=== PATIENT | female | born 1945 | race Caucasian/White ===

== ENCOUNTER 2017-02-14 10:01 | Day surgery (SDC) | payer MEDICARE, OTHER ==
[2017-02-14] MEDS ORDERED: LACTATED RINGERS 1,000 ML IV ONE ×2 (10:49→12:40)
[2017-02-14] MEDS ORDERED: MIDAZOLAM 2 MG/2 ML VIAL IVP ONE (12:00)
[2017-02-14] MEDS ORDERED: fentaNYL 250 MCG/5 ML VIAL IVP ONE (12:00)
== END 2017-02-14 10:02 | disposition home or self-care (01) ==
PROC: 0DBN8ZX Excision of Sigmoid Colon, Via Natural or Artificial Opening Endoscopic, Diagnostic (ICD-10-PCS; principal; 2017-02-14 11:15)
DX: K62.89 Other specified diseases of anus and rectum (principal); D12.5 Benign neoplasm of sigmoid colon; K57.30 Diverticulosis of large intestine without perforation or abscess without bleeding; K64.8 Other hemorrhoids; I10 Essential (primary) hypertension; E03.9 Hypothyroidism, unspecified; M85.80 Other specified disorders of bone density and structure, unspecified site
CPT/HCPCS: 45380; J7120

== ENCOUNTER 2017-02-24 11:12 | Outpatient (CLI) | payer MEDICARE, OTHER ==
[2017-02-24] MEDS ORDERED: GADOBUTROL 7.5 MMOL/7.5 ML VIAL IVP ONE (14:05)
== END 2017-02-24 11:13 | disposition home or self-care (01) ==
DX: C50.211 Malignant neoplasm of upper-inner quadrant of right female breast (principal)
CPT/HCPCS: 36415; 82565; A9585; C8908

== ENCOUNTER 2017-03-11 08:57 | Day surgery (SDC) | payer MEDICARE, OTHER ==
[2017-03-11] MEDS ORDERED: ceFAZolin 2 GM/50 ML 50 ML IV ONE (09:10)
[2017-03-11] MEDS ORDERED: LACTATED RINGERS 1,000 ML IV ONE ×2 (11:34→14:59)
[2017-03-11] MEDS ORDERED: SCOPOLAMINE PATCH TOP ONE (12:44)
[2017-03-11] MEDS ORDERED: DEXAMETHASONE 4 MG/ML VIAL IVP ONE (14:14)
[2017-03-11] MEDS ORDERED: ONDANSETRON 4 MG/2 ML VIAL IVP ONE (14:14)
[2017-03-11] MEDS ORDERED: fentaNYL 100 MCG/2 ML VIAL IVP ONE (14:14)
[2017-03-11] MEDS ORDERED: PROPOFOL 200 MG/20 ML VIAL IVP ONE (14:14)
[2017-03-11] MEDS ORDERED: ePHEDrine 50 MG/ML AMP IVP ONE (14:14)
[2017-03-11] MEDS ORDERED: MIDAZOLAM 2 MG/2 ML VIAL IVP ONE (14:14)
[2017-03-11] MEDS ORDERED: LIDOCAINE-MPF 2% 5 ML VIAL IM ONE (14:14)
[2017-03-11] MEDS ORDERED: KETOROLAC 30 MG/ML VIAL IVP ONE (14:14)
[2017-03-11] MEDS ORDERED: ACETAMINOPHEN 1,000 MG/100 ML VIAL IV ONE (14:14)
[2017-03-11] MEDS ORDERED: BUPIVACAINE 0.5% PF 30 ML VIAL SUBQ ONE (14:59)
[2017-03-11] MEDS: HYDROmorphone 1 MG/ML SYRINGE ONE ×3 (16:44→16:57)
[2017-03-11] MEDS ORDERED: oxyCOD/ACETAMIN 5 MG/325 MG TABLET PO ONE (17:48)
== END 2017-03-11 08:58 | disposition home or self-care (01) ==
PROC: C71L1ZZ Planar Nuclear Medicine Imaging of Upper Chest Lymphatics using Technetium 99m (Tc-99m) (ICD-10-PCS; 2017-03-11)
PROC: 0HBT0ZX Excision of Right Breast, Open Approach, Diagnostic (ICD-10-PCS; principal; 2017-03-11 12:30)
PROC: 07B50ZX Excision of Right Axillary Lymphatic, Open Approach, Diagnostic (ICD-10-PCS; 2017-03-11 12:30)
DX: C50.911 Malignant neoplasm of unspecified site of right female breast (principal); Z90.49 Acquired absence of other specified parts of digestive tract; E03.9 Hypothyroidism, unspecified; M85.80 Other specified disorders of bone density and structure, unspecified site
CPT/HCPCS: 19281; 19301; 38500; 76098; 78195; 88307; 88360; A9270; A9541; J0131; J0690; J1170; J3490; J7120

== ENCOUNTER 2017-03-11 16:15 | Day surgery (SDC) | payer MEDICARE, OTHER ==
[~2017-03-11 16:15] MED LIST: BUFFERED LIDOCAINE 10 ML SYRINGE IU ONE; BUPIVACAINE 0.5%-EPI 1:200000 PF 30 ML VIAL SUBQ ONE
== END 2017-03-11 16:16 | disposition home or self-care (01) ==
DX: C50.911 Malignant neoplasm of unspecified site of right female breast (principal)

== ENCOUNTER 2017-05-03 12:33 | Outpatient (CLI) | payer MEDICARE, OTHER ==
--- NOTE | 2017-05-04 08:40 | Ultrasound Report ---
LEFT BREAST ULTRASOUND: 05/03/2017 CLINICAL INDICATION: Palpable abnormality inner left breast. TECHNIQUE: Real-time scanning was performed with circulation sales representative static images obtained. FINDINGS: Ultrasound of the palpable abnormality identified by the patient was performed. Compariso n is made to diagnostic mammogram of the same day, diagnostic mammogram of 12/31/2016, MRI of the jennifer asts of 02/24/2017. At the 10 o'clock position, 7 cm from the nipple, there is a hypoechoic smoothly marginated 12 x 11 x 3 mm nodule, which demonstrates posterior acoustic enhancement and no associated vascularity. The i maging findings are compatible with a fibroadenoma. Review of the MRI demonstrates no evidence of an avid enhancing lesion at this site, compatible with a fibroadenoma. No sonographically suspicious f indings are identified. IMPRESSION: Probable benign likely fibroadenoma correlating with the palpable abnormality. The options of 6-month followup and biopsy were discussed with the patient. At this time, she opts f or 6-month followup. BI-RADS category 3, probable benign findings. JOB #: [id number] EXT JOB #:[id number]
--- NOTE | 2017-05-04 08:40 | Mammography Report ---
DIGITAL DIAGNOSTIC LEFT MAMMOGRAM: 05/03/2017 CLINICAL INDICATION: Palpable abnormality inner left breast. TECHNIQUE: Left CC, MLO, true lateral, laterally exaggerated craniocaudal views. COMPARISON: Outside mammogram 01/13/2017, MRI 02/24/2017. FINDINGS: The left breast again demonstrates heterogeneously dense fibroglandular parenchyma. Coars e, typically benign calcifications are present. No suspicious masses, clustered microcalcifications, or regions of architectural distortion are identified. Please also refer to left breast ultrasound of the same day. IMPRESSION: PROBABLE BENIGN FINDINGS, WITH A LIKELY FIBROADENOMA ON ULTRASOUND. RECOMMENDATION: Six-month followup diagnostic mammogram and ultrasound. BI-RADS category 3, probable benign findings. STANDARD QUALIFYING STATEMENTS 1. This examination was reviewed with the aid of Computer-Aided Detection (CAD). 2. A negative or benign imaging report should not delay biopsy if clinically suspicious findings are present. Consider surgical consultation if warranted. More than 5% of cancers are not identified by i maging. 3. Dense breasts may obscure an underlying neoplasm. JOB #: [id number] EXT JOB #:[id number]
== END 2017-05-03 12:34 | disposition home or self-care (01) ==
LOC: DI 12:33
PROVIDERS: ATTEND Surgery
DX: N63 Unspecified lump in breast (principal)
CPT/HCPCS: 76642; G0206

== ENCOUNTER 2017-06-24 10:25 | Outpatient (CLI) | payer MEDICARE, OTHER ==
--- NOTE | 2017-06-24 12:16 | Ultrasound Report ---
COMPLETE ABDOMINAL ULTRASOUND: 06/24/2017 CLINICAL INDICATION: Pain. TECHNIQUE: Real-time scanning was performed with unit support representative static images obtained. FINDINGS: The liver measures 14.8 cm. Hepatic echotexture is normal. No intrahepatic biliary dilatati on or focal parenchymal lesion is present. The patient is status post cholecystectomy. The common sam e duct measures 9 mm. The visualized pancreas is normal. The right kidney measures 11.1 cm, and is un remarkable. The left kidney measures 10.5 cm, and demonstrates small parenchymal calcifications, like ly representing scarring from previous infection. The spleen measures 7.3 cm, and demonstrates normal echotexture. The abdominal aorta is normal in caliber. The inferior vena cava is unremarkable. No fr ee fluid is present. IMPRESSION: CHANGES OF CHOLECYSTECTOMY. NO EVIDENT ETIOLOGY FOR PATIENT'S ABDOMINAL PAIN. JOB #: [id number] EXT JOB #:[id number]
== END 2017-06-24 10:26 | disposition home or self-care (01) ==
LOC: DI 10:25
PROVIDERS: ATTEND Physician Assistant
DX: R10.9 Unspecified abdominal pain (principal)
CPT/HCPCS: 76700

== ENCOUNTER 2017-09-13 09:54 | Outpatient (CLI) | payer MEDICARE, OTHER ==
--- NOTE | 2017-09-13 10:46 | Mammography Report ---
DIGITAL BILATERAL DIAGNOSTIC MAMMOGRAM: 09/13/2017 COMPARISON STUDY: Mammogram 05/03/2017. INDICATION: History of right breast cancer. Prior left breast procedure. This is a short-term followup for a palpable left breast abnormality that was probably a fibroadenoma as seen on ultrasound of April 2017. There is no longer a palpable abnormality, however. TECHNIQUE: Bilateral CC and MLO breast views. FINDINGS: Breast density A3, heterogeneously dense. Bilateral scar markers are in place. There is postsurgical architectural distortion on the right. No mass, concerning cluster of microcalcifications, or architectural distortion is seen in other regards. IMPRESSION: BIRADS CATEGORY 3 - PROBABLY BENIGN. THE PATIENT SHOULD RETURN FOR STANDARD SIX-MONTH FOLLOWUP OF THE POSTOPERATIVE RIGHT BREAST. STANDARD QUALIFYING STATEMENTS 1. This examination was reviewed with the aid of Computer-Aided Detection (CAD). 2. A negative or benign imaging report should not delay biopsy if clinically suspicious findings are present. Consider surgical consultation if warranted. More than 5% of cancers are not identified by imaging. 3. Dense breasts may obscure an underlying neoplasm. JOB #: [id number] EXT JOB #: [id number] MTDD
== END 2017-09-13 09:55 | disposition home or self-care (01) ==
LOC: DI 09:54
PROVIDERS: ATTEND Nurse Practitioner Adult Health
DX: C50.811 Malignant neoplasm of overlapping sites of right female breast (principal)
CPT/HCPCS: 77066

== ENCOUNTER 2017-09-14 08:00 | Outpatient (CLI) | payer MEDICARE, OTHER ==
[2017-09-14 13:12] LABS: CREATININE 0.9 mg/dL (0.4-1.0)
== END 2017-09-14 08:01 | disposition home or self-care (01) ==
LOC: LAB.N 08:00
PROVIDERS: ATTEND Radiology Radiation Oncology
DX: C50.919 Malignant neoplasm of unspecified site of unspecified female breast (principal)
CPT/HCPCS: 36415; 82565

== ENCOUNTER 2017-12-15 09:33 | Outpatient (CLI) | payer MEDICARE, OTHER ==
--- NOTE | 2017-12-15 19:15 | XRAY Report ---
DATE OF SERVICE: 12/15/2017 THREE VIEW THORACIC SPINE: 12/15/2017 CLINICAL INDICATION: Back pain. AP, lateral, swimmer's views of the thoracic spine demonstrate mild degenerative disk disease. There is no evidence of compression fracture. No paraspinal hematoma is seen. IMPRESSION: Mild degenerative disk disease. No evidence of fracture. TD: 12/15/2017 20:13
--- NOTE | 2017-12-15 19:16 | XRAY Report ---
DATE OF SERVICE: 12/15/2017 THREE VIEW LUMBAR SPINE: 12/15/2017 CLINICAL INDICATION: Back pain. AP, lateral, coned-down views of the lumbar spine demonstrate moderate degenerative disk and facet disease. There is a remote appearing mild anterior wedge compression deformity of L1, with approximately 20% anterior height loss. Degenerative dextroscoliosis is noted. The bowel gas pattern is normal. IMPRESSION: Moderate degenerative changes, with degenerative dextroscoliosis. Chronic appearing mild anterior wedge compression deformity of L1. TD: 12/15/2017 20:15
== END 2017-12-15 09:34 | disposition home or self-care (01) ==
LOC: DI 09:33
PROVIDERS: ATTEND Physician Assistant Medical
DX: M51.36 Other intervertebral disc degeneration, lumbar region (principal); M47.896 Other spondylosis, lumbar region; M48.56XD Collapsed vertebra, not elsewhere classified, lumbar region, subsequent encounter for fracture with routine healing; M41.56 Other secondary scoliosis, lumbar region; M51.34 Other intervertebral disc degeneration, thoracic region
CPT/HCPCS: 72072; 72100

== ENCOUNTER 2017-12-20 10:20 | Outpatient (CLI) | payer MEDICARE, OTHER ==
[2017-12-20 13:05] LABS: BILIRUBIN,URINE NEGATIVE (NEGATIVE); GLUCOSE, URINE (UA) NEGATIVE (NEGATIVE); KETONES,URINE (UA) NEGATIVE (NEGATIVE); LEUKOCYTE ESTERASE, URINE LARGE (NEGATIVE); NITRITE,URINE NEGATIVE (NEGATIVE); OCCULT BLOOD,URINE MODERATE (NEGATIVE); PH,URINE 6.5 PH (5.0-7.5); PROTEIN,URINE NEGATIVE (NEGATIVE); UROBILINOGEN,URINE 0.2 (NORMAL) E.U./dL (NORMAL)
[2017-12-20 13:09] LABS: CLARITY,URINE HAZY (CLEAR)
[2017-12-20 13:26] LABS: BACTERIA,URINE Rare /HPF (None Seen); RBC,URINE 0-5 /HPF (0-5); SQUAMOUS EPITHELIAL CELL,UR RARE Squamous (<= Few); WBC CLUMPS,URINE PRESENT
== END 2017-12-20 10:21 | disposition home or self-care (01) ==
LOC: LAB.R 10:20
PROVIDERS: ATTEND Nurse Practitioner Gerontology
DX: N39.0 Urinary tract infection, site not specified (principal)
CPT/HCPCS: 81001; 81003; 87077; 87086

== ENCOUNTER 2017-12-26 08:00 | Outpatient (CLI) | payer MEDICARE, OTHER ==
[2017-12-26 22:31] LABS: BILIRUBIN,URINE NEGATIVE (NEGATIVE); GLUCOSE, URINE (UA) NEGATIVE (NEGATIVE); KETONES,URINE (UA) NEGATIVE (NEGATIVE); LEUKOCYTE ESTERASE, URINE NEGATIVE (NEGATIVE); NITRITE,URINE NEGATIVE (NEGATIVE); OCCULT BLOOD,URINE NEGATIVE (NEGATIVE); PROTEIN,URINE NEGATIVE (NEGATIVE); UROBILINOGEN,URINE 0.2 (NORMAL) E.U./dL (NORMAL)
[2017-12-26 22:42] LABS: CLARITY,URINE CLEAR (CLEAR)
== END 2017-12-26 08:01 | disposition home or self-care (01) ==
LOC: LAB.R 08:00
PROVIDERS: ATTEND Nurse Practitioner Gerontology
DX: N39.0 Urinary tract infection, site not specified (principal)
CPT/HCPCS: 81001; 81003; 87086

== ENCOUNTER 2018-03-07 08:49 | Outpatient (CLI) | payer MEDICARE, OTHER ==
--- NOTE | 2018-03-07 12:43 | Mammography Report ---
DIGITAL DIAGNOSTIC RIGHT MAMMOGRAM: 03/07/2018 CLINICAL INDICATION: History of right breast cancer status post lumpectomy and radiation therapy. COMPARISON: 09/13/2017, 03/11/2017, 12/31/2016, 02/15/2014, 09/08/2012, 2010, 03/24/2010. TECHNIQUE: Right CC, MLO, true lateral, spot magnification views. FINDINGS: The right breast again demonstrates heterogeneously dense fibroglandular parenchyma. Coarse and punctate, typically benign calcifications are present. Postoperative and posttreatment changes in the right upper central breast are stable. No suspicious masses, clustered microcalcifications, or regions of architectural distortion are identified. IMPRESSION: PROBABLE BENIGN FINDINGS. RECOMMENDATION: Diagnostic bilateral mammogram in 6 months, to assure stability. BIRADS CATEGORY 3 - PROBABLE BENIGN FINDINGS. STANDARD QUALIFYING STATEMENTS 1. This examination was reviewed with the aid of Computer-Aided Detection (CAD) . 2. A negative or benign imaging report should not delay biopsy if clinically suspicious findings are present. Consider surgical consultation if warranted. More than 5 % of cancers are not identified by imaging. 3. Dense breasts may obscure an underlying neoplasm. TD: 03/07/2018 09:55 GURINDER
== END 2018-03-07 08:50 | disposition home or self-care (01) ==
LOC: DI 08:49
PROVIDERS: ATTEND Internal Medicine
DX: C50.811 Malignant neoplasm of overlapping sites of right female breast (principal); R10.2 Pelvic and perineal pain
CPT/HCPCS: 36415; 82565

== ENCOUNTER 2018-03-07 09:47 | Outpatient (CLI) | payer MEDICARE, OTHER ==
[2018-03-07 10:31] LABS: CREATININE 0.8 mg/dL (0.4-1.0)
== END 2018-03-07 09:48 | disposition home or self-care (01) ==
LOC: LAB 09:47
PROVIDERS: ATTEND Obstetrics & Gynecology
DX: R10.2 Pelvic and perineal pain (principal)
CPT/HCPCS: 36415; 82565

== ENCOUNTER 2018-03-10 08:09 | Outpatient (CLI) | payer MEDICARE, OTHER ==
[2018-03-10] MEDS ORDERED: IOPAMIDOL-300 50 ML VIAL ONE (08:30)
[2018-03-10] MEDS ORDERED: IOPAMIDOL-300 100 ML VIAL ONE (09:04)
[2018-03-10] MEDS ORDERED: IOPAMIDOL-300 100 ML VIAL IVP ONE (10:06)
[2018-03-10] MEDS ORDERED: IOPAMIDOL-300 50 ML VIAL PO ONE (10:06)
--- NOTE | 2018-03-10 19:30 | CT Report ---
CT ABDOMEN AND PELVIS WITH AND WITHOUT CONTRAST: 03/10/2018 INDICATION: Swelling pain. TECHNIQUE: Axial CT images of the abdomen and pelvis were obtained prior to and following 100 mL Isovue, 300 intravenously. Oral contrast was also administered. Limited evaluation of the lung bases demonstrates minimal atelectasis. ABDOMEN: The liver demonstrates cysts in the left lobe. No solid hepatic lesion or intrahepatic biliary dilatation is present. The patient is status post cholecystectomy. The kidneys demonstrate cysts. The spleen, pancreas and adrenal glands are unremarkable. No bowel dilatation, free gas, or free fluid is present. No abdominal adenopathy is seen. PELVIS: The pelvic organs appear unremarkable. No pelvic adenopathy or free fluid is present. Osseous structures demonstrate degenerative changes. IMPRESSION: INCIDENTAL HEPATIC AND RENAL CYSTS. NO EVIDENCE OF MASS OR ADENOPATHY. NO ASCITES. TD: 03/10/2018 19:29
== END 2018-03-10 08:10 | disposition home or self-care (01) ==
LOC: DI 08:09
PROVIDERS: ATTEND Obstetrics & Gynecology
DX: R10.2 Pelvic and perineal pain (principal); R19.07 Generalized intra-abdominal and pelvic swelling, mass and lump
CPT/HCPCS: 74178; Q9967

== ENCOUNTER 2018-04-05 13:25 | Emergency (ER) | payer MEDICARE, OTHER ==
[2018-04-05 13:32] VITALS: BP 152/83
--- NOTE | 2018-04-05 13:47 | ED Physician Documentation ---
History of Present Illness - Stated complaint Stated Complaint: FEMALE - Chief complaint Chief Complaint: General - History obtained from History obtained from: Patient, Family - History of Present Illness Timing: Other (She has a few month history of known uterine prolapse, has an appointment for surgery with Dr. Marie on May 10. Started to have vaginal bleeding today of a moderate amount which has lessened. There is pain but not more than there has been. She is consistently reducing it herself.) Review of Systems Constitutional: denies: Fever, Chills GI: denies: Abdominal Pain, Nausea, Vomiting : reports: Reviewed and negative Skin: reports: Reviewed and negative PD PAST MEDICAL HISTORY - Past Medical History Cardiovascular: None Respiratory: None Endocrine/Autoimmune: HyPOthyroidism GI: Colon polyps, Cholelithiasis : Incontinence HEENT: Chronic vision loss Psych: None Musculoskeletal: Osteoarthritis, Osteopenia, Chronic back pain Derm: None - Past Surgical History General: Cholecystectomy, Splenectomy, Other Ortho: Arthroscopic surgery /MANAGER E COMMERCE: Other HEENT: Tonsil/Adenoidectomy - Present Medications Home Medications: Ambulatory Orders Medication Instructions Recorded Confirmed Levothyroxine [Synthroid] 75 mcg PO QDAC 02/11/17 03/17/18 Rizatriptan Benzoate [Maxalt] 10 mg PO PRN PRN 02/11/17 03/17/18 Ascorbic Acid [Vitamin C] 1,000 mg PO DAILY 06/08/17 03/17/18 Calcium Carbonate/Vitamin D3 600 mg PO BID 06/08/17 03/17/18 [Calcium 600-Vit D3 400 Tablet] Glucosamine/Chondro Lloyd A 1 tab PO BID 07/06/17 03/17/18 [Glucosamine-Chondroitin Tab] [place]-3/Dha/Epa/Fish Oil [Fish Oil 1 cap PO DAILY 07/06/17 03/17/18 1,000 mg Softgel] Vitamin E 400 unit PO DAILY 07/06/17 03/17/18 Cyanocobalamin (Vitamin B-12) 100 mcg PO DAILY 10/05/17 03/17/18 [Vitamin B-12 (100mcg tab)] Turmeric/Turmeric Root Extract 1,000 mg PO DAILY 10/05/17 03/17/18 [Turmeric 500 mg Capsule] Vitamin B Complex [Balanced B-50] 1 tab PO DAILY 10/05/17 03/17/18 Tamoxifen 20 mg PO DAILY 03/17/18 03/17/18 - Allergies Allergies/Adverse Reactions: Allergies Allergy/AdvReac Type Severity Reaction Status Date / Time No Known Drug Allergies Allergy Verified 04/05/18 13:33 PD ED PE NORMAL - Vitals Vital signs reviewed: Yes - General General: Alert and oriented X 3, No acute distress - Abdomen Abdomen: Normal bowel sounds, Soft, Non tender - Female Female : Electron Microprobe Operator present (Pratima T tech), Other (Prolapse is reduced wihtout bleeding.) - Neuro Neuro: Alert and oriented X 3, Normal speech - Psych Psych: Normal mood, Normal affect Results - Vitals Vitals: Vital Signs - 24 hr 04/05/18 13:29 Temperature 36.5 C Heart Rate 69 Respiratory 16 Rate Blood Pressure 152/83 H O2 Saturation 98 Oxygen O2 Source Room air PD MEDICAL DECISION MAKING - ED course ED course: 73-year-old woman with Bleeding, resolved rectal prolapse. I spoke with her surgeon, Dr. Marie who recommended that he see her tomorrow for reevaluation and possible expediting of the surgery. Departure - Departure Disposition: 01 Home, Self Care Clinical Impression: Uterine prolapse Condition: Good Record reviewed to determine appropriate education?: Yes Comments: Dr. Marie would like to see you tomorrow, call the office today in [place] first thing in the morning at [phone]. Return if worse. Your blood pressure was elevated today on check into the emergency department. This does not mean that you have hypertension, it is a common phenomenon to come to the emergency department and have elevated blood pressure. I recommend that you see your primary care physician within the week to have it rechecked when you are feeling better.
== END 2018-04-05 14:13 | disposition home or self-care (01) ==
LOC: ED 13:25
DX: N81.4 Uterovaginal prolapse, unspecified (principal); R03.0 Elevated blood-pressure reading, without diagnosis of hypertension; E03.9 Hypothyroidism, unspecified; Z86.010 Personal history of colon polyps; M19.90 Unspecified osteoarthritis, unspecified site
CPT/HCPCS: 99282; 99283

== ENCOUNTER 2018-04-07 09:11 | Outpatient (CLI) | payer MEDICARE, OTHER ==
[2018-04-07 13:03] LABS: BASOPHILS % (AUTO) 0.6 %; EOSINOPHILS # (AUTO) 0.1 10^3/uL (0.0-0.7); EOSINOPHILS % (AUTO) 3.5 %; LYMPHOCYTES # (AUTO) 1.6 10^3/uL (1.5-3.5); MEAN CORPUSCULAR HEMOGLOBIN 31.1 pg (27.0-31.0); MEAN CORPUSCULAR HGB CONC 33.5 g/dL (32.0-36.0); MEAN CORPUSCULAR VOLUME 92.9 fL (81.0-99.0); MEAN PLATELET VOLUME 9.4 fL (7.9-10.8); MONOCYTES # (AUTO) 0.4 10^3/uL (0.0-1.0); MONOCYTES % (AUTO) 10.2 %; NEUTROPHILS # (AUTO) 1.9 10^3/uL (1.5-6.6); NEUTROPHILS % (AUTO) 46.7 %; PLT - PLATELET COUNT 196 10^3/uL (130-450); RED BLOOD COUNT 4.84 10^6/uL (4.20-5.40); WHITE BLOOD COUNT 4.2 x10^3/uL (4.8-10.8)
== END 2018-04-07 09:12 | disposition home or self-care (01) ==
LOC: LAB.N 09:11
PROVIDERS: ATTEND Obstetrics & Gynecology
DX: Z13.0 Encounter for screening for diseases of the blood and blood-forming organs and certain disorders involving the immune mechanism (principal); R19.07 Generalized intra-abdominal and pelvic swelling, mass and lump
CPT/HCPCS: 36415; 85025

== ENCOUNTER 2018-04-18 13:42 | Outpatient (CLI) | payer MEDICARE, OTHER ==
[2018-04-18 14:11] LABS: BASOPHILS % (AUTO) 0.7 %; EOSINOPHILS # (AUTO) 0.1 10^3/uL (0.0-0.7); EOSINOPHILS % (AUTO) 2.7 %; HGB - HEMOGLOBIN 14.3 g/dL (12.0-16.0); LYMPHOCYTES # (AUTO) 1.6 10^3/uL (1.5-3.5); LYMPHOCYTES % (AUTO) 31.9 %; MEAN CORPUSCULAR HEMOGLOBIN 31.2 pg (27.0-31.0); MEAN CORPUSCULAR HGB CONC 33.9 g/dL (32.0-36.0); MEAN CORPUSCULAR VOLUME 92.1 fL (81.0-99.0); MEAN PLATELET VOLUME 8.4 fL (7.9-10.8); MONOCYTES # (AUTO) 0.4 10^3/uL (0.0-1.0); MONOCYTES % (AUTO) 7.4 %; NEUTROPHILS # (AUTO) 2.9 10^3/uL (1.5-6.6); NEUTROPHILS % (AUTO) 57.3 %; PLT - PLATELET COUNT 212 10^3/uL (130-450); RED BLOOD COUNT 4.58 10^6/uL (4.20-5.40); RED CELL DISTRIBUTION WIDTH 13.3 % (12.0-15.0); WHITE BLOOD COUNT 5.1 x10^3/uL (4.8-10.8)
[2018-04-18 14:22] LABS: ALBUMIN 4.1 g/dL (3.2-5.5); ALBUMIN/GLOBULIN RATIO 1.5 (1.0-2.2); BILIRUBIN,TOTAL 0.5 mg/dL (0.2-1.0); CALCIUM 8.7 mg/dL (8.5-10.3); CREATININE 0.8 mg/dL (0.4-1.0); TOTAL PROTEIN 6.8 g/dL (6.7-8.2)
== END 2018-04-18 13:43 | disposition home or self-care (01) ==
LOC: LAB 13:42
PROVIDERS: ATTEND Obstetrics & Gynecology
DX: Z01.818 Encounter for other preprocedural examination (principal); N81.6 Rectocele; N81.3 Complete uterovaginal prolapse
CPT/HCPCS: 36415; 80053; 85025; 86850; 86900; 86901; 93005

== ENCOUNTER 2018-04-19 08:13 | Day surgery (SDC) | payer MEDICARE, OTHER ==
--- NOTE | 2018-04-18 14:59 | PREOP HISTORY & PHYSICAL ---
DATE OF SERVICE: 04/19/2018 Physician: Davon Marie MD PREOPERATIVE HISTORY/PHYSICAL OF 04/18/2018 FOR ANTICIPATED DATE OF 04/19/2018 IDENTIFICATION: Patient is a 73-year-old, G1, P1 female who is menopausal. CHIEF COMPLAINT: Uterine prolapse. HISTORY OF PRESENT ILLNESS: Patient states that she has been doing reasonably well up until a little over 2 years ago, at which time she did have complained of pressure feeling as though the uterus is falling out. She has been tried on pessary without success. She has also had pelvic floor PT. She states over the last 3 weeks she was seen in the ED, at which time, her uterus was prolapsed completely and was not being reduced. She denies any difficulty with defecation. She denies any difficulty with urination, either. She denies any stress incontinence. She does state there is some mild difficulty with urinating. PAST MEDICAL HISTORY: Positive for right breast cancer roughly 1 year ago. PAST SURGICAL HISTORY 1. Splenectomy at 6 years of age. 2. Laparoscopic cholecystectomy. 3. Right knee surgery. 4. She has also had a lumpectomy done in February 2017 for breast cancer. ALLERGIES: NONE KNOWN. CURRENT MEDICATIONS 1. Tamoxifen 2. Levothyroxine 70 mcg daily. 3. Maxalt 10 mg daily. HABITS: Patient denies use of alcohol, tobacco, or street addictive drugs. 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 REVIEW OF SYSTEMS: Noncontributory. PHYSICAL EXAMINATION GENERAL: Patient is a well-developed, well-nourished white female. She is in no acute distress at this time. HEENT: Pupils equal, round. Extraocular muscles are intact. Mouth is clear. NECK: Thyroid is not palpably enlarged. HEART: Regular rate and rhythm without murmurs. LUNGS: Lung lora are clear without rales or wheezes. CARDIOVASCULAR: Heart is regular rate and rhythm without murmurs. BACK: No spinal or CVA tenderness noted. ABDOMEN: Exam shows a left upper abdominal paramedian incision. She also has laparoscopic scars from a cholecystectomy. The remainder of abdomen soft without evidence of organomegaly. PELVIC: Examination previously showed evidence of a prolapsed uterus. There is evidence of a cystocele grade 4, as well as a rectocele. The uterus comes all the way to the introitus. IMPRESSION 1. Uterine prolapse. 2. Cystocele which is asymptomatic. 3. Rectocele which is asymptomatic. PLAN: Patient is scheduled for a total laparoscopically-assisted vaginal hysterectomy with bilateral salpingooophorectomy. She is also having anterior posterior repair, as well as a sacrospinous ligament suspension. Risks and benefits have been explained to the patient including those, but not limited to bleeding, infection, injury to the pelvic organs. She is aware of the potential for DVT with PE as well as postop adhesions which could cause pain, bowel obstruction. MEDICATIONS She has been given prescriptions for: 1. Oxycodone 10 mg #20. 2. Motrin 800 mg #30. 3. Colace 100 mg #30. TD: 04/18/2018 13:19 GURINDER
[2018-04-19] MEDS ORDERED: LACTATED RINGERS 1,000 ML IV ONE ×4 (08:28→13:29)
[2018-04-19] MEDS ORDERED: ceFAZolin 2 GM/50 ML 2 GM/50 ML BAG IV ONE (08:31)
[2018-04-19 08:52] VITALS: BP 138/76
[2018-04-19] MEDS ORDERED: BUPIVACAINE 0.25%-EPI 1:200000 PF 30 ML VIAL ONE ×2 (09:24→11:05)
[2018-04-19] MEDS ORDERED: BUPIVACAINE 0.5% PF 30 ML VIAL ONE (09:25)
[2018-04-19] MEDS ORDERED: BUPIVACAINE 0.25%-EPI 1:200000 PF 10 ML VIAL SUBQ ONE ×2 (09:57)
[2018-04-19] MEDS ORDERED: ePHEDrine 50 MG/ML AMP IVP ONE (10:30)
[2018-04-19] MEDS ORDERED: KETOROLAC 30 MG/ML VIAL IVP ONE (10:30)
[2018-04-19] MEDS ORDERED: LIDOCAINE-MPF 2% 5 ML VIAL IM ONE (10:30)
[2018-04-19] MEDS ORDERED: ONDANSETRON 4 MG/2 ML VIAL IVP ONE (10:30)
[2018-04-19] MEDS ORDERED: PROPOFOL 200 MG/20 ML VIAL IVP ONE (10:30)
[2018-04-19] MEDS ORDERED: GLYCOPYRROLATE 1 MG/5 ML VIAL IVP ONE (10:30)
[2018-04-19] MEDS ORDERED: ACETAMINOPHEN 1,000 MG/100 ML 100 ML IV ONE (10:30)
[2018-04-19] MEDS ORDERED: ROCURONIUM 50 MG/5 ML VIAL IVP ONE (10:30)
[2018-04-19] MEDS ORDERED: DEXAMETHASONE 4 MG/ML VIAL IVP ONE (10:30)
[2018-04-19] MEDS ORDERED: ESTROGENS, CONJUGATED CREAM 30 GM TUBE ONE (10:42)
[2018-04-19] MEDS ORDERED: ESTROGENS, CONJUGATED CREAM 30 GM TUBE VG ONE (11:04)
[2018-04-19] MEDS ORDERED: METHYLENE BLUE 0.5% 50 MG/10 ML AMPULE IVP ONE (12:20)
[2018-04-19] MEDS ORDERED: METHYLENE BLUE 0.5% 50 MG/10 ML AMPULE ONE (12:28)
[2018-04-19] MEDS ORDERED: ERTAPENEM 1 GM in SODIUM CHLORIDE 0.9% MINIBAG 100 ML IV ONE (12:52)
[2018-04-19] MEDS: HYDROmorphone 1 MG/ML CARPUJECT ONE ×4 (13:42→14:13)
[2018-04-19] MEDS: LACTATED RINGERS 1,000 ML IV SCH ×2 (14:30→20:26)
[2018-04-19] MEDS ORDERED: ONDANSETRON 4 MG/2 ML VIAL IVP PRN (16:03)
[2018-04-19] MEDS: oxyCOD/ACETAMIN 5 MG/325 MG TABLET PO PRN ×2 (17:48→21:52)
--- NOTE | 2018-04-19 20:09 | OPERATIVE REPORT ---
DATE OF SERVICE: 04/19/2018 Physician: Davon Marie MD PREOPERATIVE DIAGNOSES 1. Uterine prolapse. 2. Cystocele. 3. Rectocele. POSTOPERATIVE DIAGNOSES 1. Uterine prolapse. 2. Cystocele. 3. Rectocele. PROCEDURE PERFORMED 1. Laparoscopically assisted vaginal hysterectomy with bilateral salpingo- oophorectomy. 2. Anterior and posterior repair with sacrospinous ligament suspension. 3. Cystoscopy. 4. Colonoscopy. SURGEON: Davon Marie MD COOK CASHIER FOOD PREP: Nany Gauthier DO ANESTHESIA: Bryan Gan CRNA. General via LMA. FINDINGS: Large cystocele and rectocele. Uterus prolapsed all the way to the introitus. There was a normal cystoscopy as well as colonoscopy. COMPLICATIONS: Possible suture left through the rectum, which on colonoscopy was not proven. ESTIMATED BLOOD LOSS: 50 mL. SPECIMENS TO PATHOLOGY: Uterus, tubes and ovaries. DESCRIPTION OF OPERATION: Following adequate endotracheal anesthesia, the patient was placed in a dorsal lithotomy position in [facility]. At this point, she was prepped and draped in the usual fashion. A timeout was then performed, which the patient was identified as well as concerns. A speculum was placed in the vagina, cervix visualized, grasped with a single-tooth tenaculum. Uterus was sounded to 10 cm and then progressively dilated up to a size 7 dilator. A HUMI catheter was then placed and then insufflated. The canteen operator's gloves were changed. A stab wound was made in the subumbilical region following local anesthesia with 0.25% Marcaine with epinephrine. A trocar and sheath were placed under direct visualization. There was evidence of omental adhesions to the anterior abdominal wall. Bilateral trocars were placed both in the left and right lower quadrants following local anesthesia with 0.25 % Marcaine with epinephrine and a #11 blade to skin incision. These were both under direct visualization. The omental adhesions were noted to extend below the umbilicus utilizing the LigaSure. These were cauterized and divided. Good hemostasis was observed. The patient was placed in Trendelenburg. The bowel was allowed to fall out of the pelvis and the pelvis was inspected and noted to be normal. There was some adhesion on the left hand side of the sigmoid to the left pelvic sidewall. These were taken down with the LigaSure. The right fallopian tube and ovary were grasped and the infundibulopelvic ligament was cauterized doubly and then divided using the LigaSure. Then, in a stepwise fashion, the ovarian attachments to the broad ligament were cauterized and transected. This was carried all the way to the cornu. At this point, the round ligament on the right side was cauterized and then transected. The broad ligament was cauterized, transected, and then the anterior leaf of the broad ligament was opened. This was then cauterized, transected, carried across the lower portion of the uterus to develop a bladder flap. The uterine vessels on the right hand side were identified, cauterized, and transected. The ureter was noted to be out of the area of operating. The left tube and ovary, there were some adhesions which were taken down laparoscopically. The infundibulopelvic ligaments were then ligated, cauterized, and then transected. Then, the ovarian attachments were likewise cauterized and transected. This was carried down to the cornu and then the round ligament was cauterized, transected, as well as the broad ligament. The broad ligament was then opened and this was carried all the way to the bladder flap area. The uterine vessels on the left hand side were identified cauterized and transected with the LigaSure. At this point, with all the attachments above the belly being identified and divided, the attention was turned below. The cervix was grasped with Vora clamps, anterior and posterior, and the cervix was circumscribed with electrocautery. The anterior portion of the bladder was dissected off the lower cervix until the peritoneal cavity was entered. The posterior cul-de-sac was entered using Silva scissors and then the uterosacral ligaments were clamped with Griffin clamps, divided with Silva scissors and ligated with Griffin stitches with 0 Vicryl. The transverse cervical ligaments were then likewise clamped, divided, and ligated with 0 Vicryl. The uterus was then extirpated. The pedicles were inspected for bleeding, so none was noted. At this point, the long-billed speculum was left in the vagina and then the corners of the apex of the vagina were grasped with Allises and roughly 2 cm from the ureteral meatus, the anterior vaginal mucosa was grasped with an Allis. Then, Metzenbaum scissors were used to tunnel underneath the vaginal mucosa and then the vaginal mucosa was divided all the way up to the Allis clamp. The edges were grasped with Allis-Adairs. The bladder was then pushed free from the vaginal mucosa. The bladder was then plicated with 0 Vicryl sutures to reduce the cystocele. This was done completely. The anterior vaginal mucosa was trimmed and then this was closed utilizing 2-0 Vicryl. The uterosacral ligaments were then injected with 0.25% Marcaine and care was taken to aspirate to assure that none of the Marcaine was injected intravascularly. At this point, a pursestring of 4-0 Monocryl was placed to close the abdominal peritoneum. Attention was then changed to the posterior vaginal mucosa. A triangular segment of the vaginal mucosa was removed and then utilizing Metzenbaum sutures, the posterior vaginal mucosa was tunneled under and then divided. The edges of this were grasped with Smyth's. The rectum was pushed free from the vaginal mucosa. Then, utilizing the index finger, tunneling was accomplished between the rectum and the apex of the vagina all the way to the uterosacral ligament on the right hand side. At this point, following identification of the ligament, a Capio suture device was utilized to place a suture through the sacrospinous ligament. This was placed with 0 braided polyester. Two sutures were placed. At this point, these were then brought through the opening of the apex of the vagina. These sutures were then placed through the transverse cervical ligaments on both sides and then tied to these ligaments, the left hand side, the knots did not come down to the transverse cervical ligament, so this was removed and then replaced. At this point, the knots were placed in the suture and then the gabi system was used to pull the apex of the vagina deep into the pelvis. This had good accomplishment. The sutures were then trimmed and then the apex of the vagina was closed utilizing 2 -0 Vicryl. The posterior rectovaginal fascia was plicated utilizing 0 Vicryl and then the excess vaginal mucosa was trimmed and closed utilizing [id number] of 0 Vicryl. A digital rectal exam was performed at this time, at which time it was felt that there was a suture that was penetrating through the rectum. This was visualized through the speculum, so general surgery was summoned, at which time a colonoscopy was performed and no suture was seen. No puncture sites were seen in the vaginal mucosa after very careful inspection, so at this time is proceeding on with the procedure. Laparoscopic was performed, at which time the pelvis appeared to be dry without evidence of any bleeding. The CO2 was allowed to escape and these sutures were then closed utilizing 4-0 Monocryl with Dermabond sutures. The cystoscopy was performed and then there was evidence of good urine flow through both ureters. Vaginal packing was placed and the patient was then taken to the recovery room in stable condition. Sponge and needle counts were correct. TD: 04/19/2018 14:20 GURINDER
[2018-04-19] MEDS: AMOX/CLAV 875 MG/125 MG TABLET PO SCH (20:26)
[2018-04-20] MEDS: oxyCOD/ACETAMIN 5 MG/325 MG TABLET PO PRN ×2 (02:04→06:05)
[2018-04-20] MEDS: LACTATED RINGERS 1,000 ML IV SCH (06:05)
[2018-04-20] MEDS: AMOX/CLAV 875 MG/125 MG TABLET PO SCH (09:03)
== END 2018-04-20 09:54 | disposition home or self-care (01) ==
LOC: SDS 08:13 → OBS 14:00 → SDS 04-20 09:54
PROVIDERS: ATTEND Obstetrics & Gynecology
PROC: 0UTC4ZZ Resection of Cervix, Percutaneous Endoscopic Approach (ICD-10-PCS; 2018-04-19)
PROC: 0UT9FZZ Resection of Uterus, Via Natural or Artificial Opening With Percutaneous Endoscopic Assistance (ICD-10-PCS; principal; 2018-04-19 09:15)
PROC: 0UT2FZZ Resection of Bilateral Ovaries, Via Natural or Artificial Opening With Percutaneous Endoscopic Assistance (ICD-10-PCS; 2018-04-19 09:15)
PROC: 0UT7FZZ Resection of Bilateral Fallopian Tubes, Via Natural or Artificial Opening With Percutaneous Endoscopic Assistance (ICD-10-PCS; 2018-04-19 09:15)
DX: N81.3 Complete uterovaginal prolapse (principal); Z85.3 Personal history of malignant neoplasm of breast; E03.9 Hypothyroidism, unspecified
CPT/HCPCS: 58552; A9270; J0131; J0690; J1170; J1335; J7120; 88305

== ENCOUNTER 2018-04-24 10:23 | Emergency (ER) | payer MEDICARE, OTHER ==
[2018-04-24 11:26] LABS: BILIRUBIN,URINE NEGATIVE (NEGATIVE); GLUCOSE, URINE (UA) NEGATIVE (NEGATIVE); KETONES,URINE (UA) NEGATIVE (NEGATIVE); LEUKOCYTE ESTERASE, URINE NEGATIVE (NEGATIVE); NITRITE,URINE NEGATIVE (NEGATIVE); OCCULT BLOOD,URINE TRACE-LYSE (NEGATIVE); PH,URINE 5.5 PH (5.0-7.5); PROTEIN,URINE NEGATIVE (NEGATIVE); UROBILINOGEN,URINE 0.2 (NORMAL) E.U./dL (NORMAL)
[2018-04-24 11:28] LABS: BASOPHILS % (AUTO) 0.7 %; EOSINOPHILS # (AUTO) 0.2 10^3/uL (0.0-0.7); EOSINOPHILS % (AUTO) 2.8 %; HGB - HEMOGLOBIN 14.5 g/dL (12.0-16.0); LYMPHOCYTES # (AUTO) 1.5 10^3/uL (1.5-3.5); LYMPHOCYTES % (AUTO) 26.7 %; MEAN CORPUSCULAR HGB CONC 33.5 g/dL (32.0-36.0); MEAN CORPUSCULAR VOLUME 92.6 fL (81.0-99.0); MONOCYTES # (AUTO) 0.5 10^3/uL (0.0-1.0); MONOCYTES % (AUTO) 8.3 %; NEUTROPHILS # (AUTO) 3.5 10^3/uL (1.5-6.6); NEUTROPHILS % (AUTO) 61.5 %; PLT - PLATELET COUNT 220 10^3/uL (130-450); RED BLOOD COUNT 4.68 10^6/uL (4.20-5.40); RED CELL DISTRIBUTION WIDTH 13.3 % (12.0-15.0); WHITE BLOOD COUNT 5.7 x10^3/uL (4.8-10.8)
[2018-04-24 11:33] LABS: CLARITY,URINE CLEAR (CLEAR)
--- NOTE | 2018-04-24 11:37 | ED Physician Documentation ---
History of Present Illness - Stated complaint Stated Complaint: FEMALE -POST SURGERY - Chief complaint Chief Complaint: Abd Pain - History obtained from History obtained from: Patient - History of Present Illness Timing: How many days ago (5) Pain level max: 7 Pain level now: 5 - Additonal information Additional information: Patient is a 73-year-old female who presents to the emergency department complaining of pain between her rectum and vagina after a vaginal hysterectomy with laparoscopic assistance. Dr. Marie performed the surgery. No fevers, no vomiting, no abd pain, no constipation. Review of Systems Constitutional: denies: Fever, Chills Respiratory: denies: Cough GI: denies: Nausea, Vomiting, Diarrhea : denies: Dysuria, Frequency, Hesitancy Skin: denies: Rash Musculoskeletal: denies: Neck pain, Back pain Neurologic: denies: Focal weakness, Numbness, Headache PD PAST MEDICAL HISTORY - Past Medical History Past Medical History: Yes Cardiovascular: None Respiratory: None Endocrine/Autoimmune: HyPOthyroidism GI: Colon polyps, Cholelithiasis : Incontinence HEENT: Chronic vision loss Psych: None Musculoskeletal: Osteoarthritis, Osteopenia, Chronic back pain Derm: None - Past Surgical History General: Cholecystectomy, Splenectomy, Other Ortho: 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: Other HEENT: Tonsil/Adenoidectomy - Present Medications Home Medications: Ambulatory Orders Medication Instructions Recorded Confirmed Levothyroxine [Synthroid] 75 mcg PO QDAC 02/11/17 04/19/18 Rizatriptan Benzoate [Maxalt] 10 mg PO PRN PRN 02/11/17 04/19/18 Ascorbic Acid [Vitamin C] 1,000 mg PO DAILY 06/08/17 04/18/18 Calcium Carbonate/Vitamin D3 600 mg PO BID 06/08/17 04/18/18 [Calcium 600-Vit D3 400 Tablet] Cyanocobalamin (Vitamin B-12) 100 mcg PO DAILY 10/05/17 04/18/18 [Vitamin B-12 (100mcg tab)] Tamoxifen 20 mg PO DAILY 03/17/18 04/18/18 Ibuprofen 800 mg PO 04/24/18 oxyCODONE [Roxicodone] 5 mg PO ONCE 04/24/18 04/24/18 - Allergies Allergies/Adverse Reactions: Allergies Allergy/AdvReac Type Severity Reaction Status Date / Time No Known Drug Allergies Allergy Verified 04/24/18 11:03 - Social History Does the pt smoke?: No Smoking Status: Never smoker Does the pt drink ETOH?: No Does the pt have substance abuse?: No - Immunizations Immunizations are current?: Yes PD ED PE NORMAL - Vitals Vital signs reviewed: Yes - General General: Alert and oriented X 3, No acute distress - HEENT HEENT: Moist mucous membranes - Neck Neck: Supple, no meningeal sign - Cardiac Cardiac: RRR, Strong equal pulses - Respiratory Respiratory: No respiratory distress, Clear bilaterally - Abdomen Abdomen: Soft, Non tender, Non distended - Female Female : Press Tender Smoke Signal present (Sonja RN), Other (posterior vaginal laceration. mild induration without fluctuance. no drainage. no erythema. ) - Derm Derm: Warm and dry - Extremities Extremities: No edema, No calf tenderness / cord - Neuro Neuro: Alert and oriented X 3 - Psych Psych: Normal mood, Normal affect Results - Vitals Vitals: Oxygen O2 Source Room air - Labs Labs: Laboratory Tests 04/24/18 04/24/18 04/24/18 11:00 11:09 11:09 WBC 5.7 RBC 4.68 Hgb 14.5 Hct 43.3 MCV 92.6 MCH 31.0 MCHC 33.5 RDW 13.3 Plt Count 220 MPV 9.0 Neut # (Auto) 3.5 Lymph # (Auto) 1.5 [place] # (Auto) 0.5 Eos # (Auto) 0.2 Baso # (Auto) 0.0 Absolute Nucleated RBC 0.00 Nucleated RBC % 0.0 Sodium 134 L Potassium 4.0 Chloride 101 Carbon Dioxide 28 Anion Gap 5.0 L BUN 16 Creatinine 0.9 Estimated GFR (MDRD) 62 L Glucose 88 Calcium 8.7 Total Bilirubin 0.5 AST 21 ALT 21 Alkaline Phosphatase 48 Total Protein 6.9 Albumin 3.9 Globulin 3.0 Albumin/Globulin Ratio 1.3 Lipase 30 Urine Color YELLOW Urine Clarity CLEAR Urine pH 5.5 Ur Specific [place] 1.010 Urine Protein NEGATIVE Urine Glucose (UA) NEGATIVE Urine Ketones NEGATIVE Urine Occult Blood TRACE-LYSE Urine Nitrite NEGATIVE Urine Bilirubin NEGATIVE Urine Urobilinogen 0.2 (NORMAL) Ur Leukocyte Esterase NEGATIVE Ur Microscopic Review NOT INDICATED Urine Culture Comments NOT INDICATED PD MEDICAL DECISION MAKING - ED course Complexity details: reviewed results, re-evaluated patient, considered differential, d/w patient, d/w wireless sales consultant ED course: Patient is a 73-year-old female with posterior vaginal pain after a vaginal hysterectomy, laparoscopic assisted. Dr. Gauthier was consulted who came and evaluated the patient. Dr. Gauthier evaluated the patient and will rx oxycodone and estrogen cream. Will follow up in the office. Patient counseled regarding signs and symptoms for which I believe and urgent re-evaluation would be necessary. Patient with good understanding of and agreement to plan and is comfortable going home at this time This document was made in part using voice recognition software. While efforts are made to proofread this document, sound alike and grammatical errors may occur. Departure - Departure Disposition: 01 Home, Self Care Clinical Impression: Postoperative pain Condition: Good Instructions: ED Post Op Pain Follow-Up: Ivory Parry ARNP [Primary Care Provider] - Davon Marie MD [Provider Admit Priv/Credential] - Comments: Return if you worsen. Take the medications as prescribed by Dr. Gauthier today. Do not drink alcohol or drive while on narcotic pain medicine. Note that many narcotic pain relievers also contain tylenol/acetaminophen. Please ensure that your total dose of acetaminophen from all sources does not exceed 3 grams (3000mg) per day. You may constipated on this medication, take a stool softener such as "Colace" twice a day while you are on it. Also recommend a neiw-wgg-xujtnsj laxative such as senna or MiraLAX any day that you do not have a bowel movement. If you received narcotic pain medication in the emergency department, do not drive or operate machinery for the next 24 hours. Discharge Date/Time: 04/24/18 12:45
[2018-04-24 11:38] LABS: ALBUMIN 3.9 g/dL (3.2-5.5); ALBUMIN/GLOBULIN RATIO 1.3 (1.0-2.2); BILIRUBIN,TOTAL 0.5 mg/dL (0.2-1.0); CALCIUM 8.7 mg/dL (8.5-10.3); CREATININE 0.9 mg/dL (0.4-1.0); TOTAL PROTEIN 6.9 g/dL (6.7-8.2)
--- NOTE | 2018-04-24 12:56 | CONSULTATION NOTE ---
DATE OF SERVICE: 04/24/2018 Physician: Nany Gauthier DO IDENTIFICATION: This is a 73-year-old, G1, P1-0-0-1, status post 04/19/2018 laparoscopic-assisted vaginal hysterectomy, bilateral salpingo-oophorectomy, anterior and posterior colporrhaphy, sacrospinous ligament suspension, colonoscopy. HISTORY OF PRESENT ILLNESS: The patient presents to the emergency department with complaints of burning and pain in her lower pelvic area. She tried to use a mirror, but was unable to see her vulva. She was worried that there might be an infection in her repair site. Dr. Eduardo Cohen asked me to come see the patient. The patient denied any nausea, vomiting, fevers, chills, diarrhea or constipation. She does state that she still continues to need to use oxycodone 5 mg q. 4 hours for breakthrough pain. She has 6 tablets left. She also notes that she is taking stool softeners, but it is to the point where she almost has diarrhea. I recommended the patient to decrease her Colace, so that she will have soft stools, but not runny. She states that the pain that happens occurs when she is sitting down or standing. When she is not moving, the pain is improved. OBJECTIVE: Female. The patient has atrophic vulva and there is a small area of excoriation in the posterior introitus. There is a small opening approximately 0.5 cm in vertical length. It is not eroded. There is no erythema. There is no edema nor exudate. I do not appreciate a suture in that area. Otherwise, it is unremarkable. ASSESSMENT 1. A 73-year-old, G1, P1-0-0-1. 2. Status post LAVH, BSO, anterior and posterior colporrhaphy, sacrospinous ligament suspension and colonoscopy on 04/19/2018. 3. Skin opening of the introitus. PLAN: We will plan to have the patient put a small amount of estrogen cream on top of the area in which she is having discomfort. Though she has a history of breast cancer and is taking tamoxifen, I feel that a small amount of local estrogen would not be of significant risk to her. In additional, I will go ahead and give the patient a refill on her oxycodone. She does have an appointment to see Dr. Marie for routine 2-week postop visit. TD: 04/24/2018 12:34 MTDLesia
[2018-04-24 13:12] VITALS: BP 124/95
== END 2018-04-24 12:45 | disposition home or self-care (01) ==
LOC: ED 10:23
DX: G89.18 Other acute postprocedural pain (principal); Z85.3 Personal history of malignant neoplasm of breast; E03.9 Hypothyroidism, unspecified; Z90.81 Acquired absence of spleen
CPT/HCPCS: 36415; 80053; 81001; 81003; 83690; 85025; 87086; 99283

== ENCOUNTER 2018-05-02 08:00 | Outpatient (CLI) | payer MEDICARE, OTHER | END 2018-05-02 08:01 | LOC: LAB.R 08:00 | PROVIDERS: ATTEND Obstetrics & Gynecology | DX: R30.0 Dysuria (principal) | CPT/HCPCS: 87086 ==

== ENCOUNTER 2018-05-23 14:26 | Outpatient (CLI) | payer MEDICARE, OTHER | END 2018-05-23 14:27 | disposition home or self-care (01) | LOC: LAB.R 14:26 | PROVIDERS: ATTEND Obstetrics & Gynecology | DX: N76.0 Acute vaginitis (principal) | CPT/HCPCS: 87480; 87510; 87660 ==

== ENCOUNTER 2018-06-01 14:14 | Outpatient (CLI) | payer MEDICARE, OTHER ==
[2018-06-01 15:52] LABS: BILIRUBIN,URINE NEGATIVE (NEGATIVE); GLUCOSE, URINE (UA) NEGATIVE (NEGATIVE); KETONES,URINE (UA) NEGATIVE (NEGATIVE); LEUKOCYTE ESTERASE, URINE NEGATIVE (NEGATIVE); NITRITE,URINE NEGATIVE (NEGATIVE); OCCULT BLOOD,URINE TRACE-INTA (NEGATIVE); PH,URINE 6.5 PH (5.0-7.5); PROTEIN,URINE NEGATIVE (NEGATIVE); UROBILINOGEN,URINE 0.2 (NORMAL) E.U./dL (NORMAL)
[2018-06-01 16:06] LABS: BACTERIA,URINE None Seen /HPF (None Seen); CLARITY,URINE CLEAR (CLEAR); RBC,URINE None Seen /HPF (0-5); SQUAMOUS EPITHELIAL CELL,UR RARE Squamous (<= Few)
== END 2018-06-01 14:15 | disposition home or self-care (01) ==
LOC: LAB.R 14:14
PROVIDERS: ATTEND Obstetrics & Gynecology
DX: N39.41 Urge incontinence (principal)
CPT/HCPCS: 81001

== ENCOUNTER 2018-09-08 09:11 | Outpatient (CLI) | payer MEDICARE, OTHER ==
--- NOTE | 2018-09-08 10:31 | Mammography Report ---
Reason: RT BREAST CA Procedure Date: 09/08/2018 Accession Number: [id number] / [id number] Procedure: JOSE - Diagnostic Dig Bilat CPT Code: FULL RESULT: EXAM: Diagnostic Dig Bilat DATE: 09/08/2018 10:20 AM CLINICAL HISTORY: History of right breast cancer status post lumpectomy and radiation therapy. TECHNIQUE: Bilateral digital CC and MLO projections with additional magnification views of the surgical bed. COMPARISON: 03/07/2018, 09/13/2017, 05/03/2017, 03/11/2017, 01/13/2017, 12/31/2016, 02/07/2014, 09/08/2012, and 03/25/2011 FINDINGS: The breast tissue is extremely dense. Post therapeutic changes right breast are stable. Postbiopsy changes left breast also stable. No new dominant mass, skin thickening, architectural distortion, or suspicious microcalcifications. IMPRESSION: Benign findings RECOMMENDATION: Follow-up unilateral right mammogram in 6 months. BIRADS CATEGORY 2: Benign findings STANDARD QUALIFYING STATEMENTS: 1. This examination was reviewed with the aid of Computer-Aided Detection (CAD). 2. A negative or benign imaging report should not delay biopsy if clinically suspicious findings are present. Consider surgical consultation if warrented. More than 5% of cancers are not identified by imaging. 3. Dense breasts may obscure an underlying neoplasm.
== END 2018-09-08 09:12 | disposition home or self-care (01) ==
LOC: DI 09:11
PROVIDERS: ATTEND Internal Medicine
DX: C50.911 Malignant neoplasm of unspecified site of right female breast (principal)
CPT/HCPCS: 77066

== ENCOUNTER 2018-10-04 16:41 | Emergency (ER) | payer MEDICARE, OTHER ==
[2018-10-04 17:00] VITALS: BP 148/88
--- NOTE | 2018-10-04 17:21 | ED Physician Documentation ---
PD HPI HEENT - Stated complaint Stated Complaint: RT SIDE OF NECK SWELLING - Chief complaint Chief Complaint: General - History obtained from History obtained from: Patient - History of Present Illness Timing - onset: How many weeks ago (1) Timing - duration: Weeks (about a week ago, noted feeling of lump right anterior neck. It has persisted and feels somewhat more prominent now. Not tender. No other symptoms.) Timing - details: Gradual onset Associated symptoms: No: Fever, Congestion, Facial swelling, Cough Similar symptoms before: Has not had sx before Recently seen: Not recently seen (tried to get appt with PMD, but no appts available for 3 weeks.) Review of Systems Constitutional: denies: Fever, Chills Eyes: denies: Loss of vision, Decreased vision Ears: denies: Loss of hearing, Ear pain, Drainage/discharge Nose: denies: Rhinorrhea / runny nose, Congestion Throat: denies: Sore throat Respiratory: denies: Cough Skin: denies: Rash, Lesions Neurologic: denies: Focal weakness, Numbness, Near syncope, Headache PD PAST MEDICAL HISTORY - Past Medical History Past Medical History: Yes Cardiovascular: None Respiratory: None Endocrine/Autoimmune: HyPOthyroidism GI: Colon polyps, Cholelithiasis 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 : Incontinence HEENT: Chronic vision loss Psych: None Musculoskeletal: Osteoarthritis, Osteopenia, Chronic back pain Derm: None - Past Surgical History Past Surgical History: Yes General: Cholecystectomy, Splenectomy, Other Ortho: Arthroscopic surgery /OXYGEN FURNACE OPERATOR: Hysterectomy, Other HEENT: Tonsil/Adenoidectomy - Present Medications Home Medications: Ambulatory Orders Medication Instructions Recorded Confirmed Levothyroxine [Synthroid] 75 mcg PO QDAC 02/11/17 09/20/18 Rizatriptan Benzoate [Maxalt] 10 mg PO PRN PRN 02/11/17 09/20/18 Ascorbic Acid [Vitamin C] 1,000 mg PO DAILY 06/08/17 09/20/18 Calcium Carbonate/Vitamin D3 600 mg PO BID 06/08/17 09/20/18 [Calcium 600-Vit D3 400 Tablet] Cyanocobalamin (Vitamin B-12) 100 mcg PO DAILY 10/05/17 09/20/18 [Vitamin B-12 (100mcg tab)] Tamoxifen 20 mg PO DAILY 03/17/18 09/20/18 Ibuprofen 800 mg PO PRN PRN 04/24/18 09/20/18 oxyCODONE [Roxicodone] 5 mg PO ONCE 04/24/18 09/20/18 Acetaminophen [Tylenol] 1 - 2 tab ORAL DAILY PRN 09/20/18 09/20/18 Azo Urinary Tract Health 1 tab ORAL DAILY 09/20/18 09/20/18 Potassium Gluconate 1 tab ORAL DAILY 09/20/18 09/20/18 Probiotic Gummies 1 ea ORAL DAILY 09/20/18 09/20/18 - Allergies Allergies/Adverse Reactions: Allergies Allergy/AdvReac Type Severity Reaction Status Date / Time No Known Drug Allergies Allergy Verified 10/04/18 16:59 - Social History Does the pt smoke?: No Smoking Status: Never smoker Does the pt drink ETOH?: Yes ETOH Use: Wine Does the pt have substance abuse?: No - Immunizations Immunizations are current?: Yes - POLST Patient has POLST: No PD ED PE NORMAL - Vitals Vital signs reviewed: Yes - General General: Alert and oriented X 3, Well developed/nourished - HEENT HEENT: Ears normal, Moist mucous membranes, Pharynx benign - Neck Neck: Supple, no meningeal sign, Other (right anterior neck with feeling of some fullness/rounded area, without fluctuance. No rash nor sores. the area feeling enlarged is about 1-2 cm, movable from underlying muscle, nonpulsatile, and not tender. ) - Cardiac Cardiac: RRR, No murmur - Respiratory Respiratory: Clear bilaterally Results - Vitals Vitals: Oxygen O2 Source Room air - Labs Labs: Laboratory Tests 10/04/18 10/04/18 17:49 17:49 Sodium 139 Potassium 3.7 Chloride 106 Carbon Dioxide 28 Anion Gap 5.0 L BUN 20 Creatinine 0.8 Estimated GFR (MDRD) 71 L Glucose 99 Calcium 8.8 Total Bilirubin 0.5 AST 22 ALT 21 Alkaline Phosphatase 40 L Total Protein 6.9 Albumin 4.1 Globulin 2.8 Albumin/Globulin Ratio 1.5 Lipase 32 TSH 1.12 - Rads (name of study) neck U/S Radiology: Prelim report reviewed (thickened muscle in area. No identified mass, cyst, lump. ) PD MEDICAL DECISION MAKING - ED course Complexity details: considered differential (it is high for thyroid, feels like node or possible lipoma. Not pulsatile. Freely moving from muscle. No skin lesions nor redness. Will get U/S.), d/w patient Departure - Departure Disposition: 01 Home, Self Care Clinical Impression: Neck swelling Condition: Stable Record reviewed to determine appropriate education?: Yes Follow-Up: Ivory Parry ARNP [Primary Care Provider] - Comments: The ultrasound did not show any obvious mass or cyst. It just showed some thickening of the muscle in the area. I do not think any particular treatment is needed. Discharge Date/Time: 10/04/18 19:47
[2018-10-04 18:12] LABS: ALBUMIN 4.1 g/dL (3.2-5.5); ALBUMIN/GLOBULIN RATIO 1.5 (1.0-2.2); BILIRUBIN,TOTAL 0.5 mg/dL (0.2-1.0); CALCIUM 8.8 mg/dL (8.5-10.3); CREATININE 0.8 mg/dL (0.4-1.0); TOTAL PROTEIN 6.9 g/dL (6.7-8.2)
--- NOTE | 2018-10-04 19:32 | Ultrasound Report ---
Reason: lump right anterior neck; ? lymph node Procedure Date: 10/04/2018 Accession Number: [id number] / [id number] Procedure: US - Head or Neck Soft Tissue CPT Code: FULL RESULT: EXAM: NECK ULTRASOUND EXAM DATE: 10/04/2018 06:44 PM. CLINICAL HISTORY: Right anterior neck palpable lump. COMPARISON: None. TECHNIQUE: Real-time sonographic imaging was performed by the insulation nozzleman utilizing color-flow. Multiple uniforms sales representative static images were saved for review. FINDINGS IMPRESSION: Targeted evaluation of the area of palpable concern in the right anterior neck reveals no underlying sonographic abnormality. Specifically, no mass, focal fluid collection, or adenopathy. RADIA
== END 2018-10-04 19:47 | disposition home or self-care (01) ==
LOC: ED 16:41
DX: R22.1 Localized swelling, mass and lump, neck (principal); Z85.3 Personal history of malignant neoplasm of breast; E03.9 Hypothyroidism, unspecified
CPT/HCPCS: 36415; 76536; 80053; 83690; 84443; 99282

== ENCOUNTER 2018-10-18 08:00 | Outpatient (CLI) | payer MEDICARE, OTHER | END 2018-10-18 08:01 | disposition home or self-care (01) | LOC: LAB.R 08:00 | PROVIDERS: ATTEND Nurse Practitioner Obstetrics & Gynecology | DX: N39.0 Urinary tract infection, site not specified (principal); R30.0 Dysuria | CPT/HCPCS: 87086 ==

== ENCOUNTER 2018-10-24 08:00 | Outpatient (CLI) | payer MEDICARE, OTHER | END 2018-10-24 23:59 | disposition home or self-care (01) | LOC: LAB.R 08:00 | PROVIDERS: ATTEND Nurse Practitioner Obstetrics & Gynecology | DX: R30.0 Dysuria (principal) | CPT/HCPCS: 87086 ==

== ENCOUNTER 2018-12-19 08:00 | Outpatient (CLI) | payer MEDICARE, OTHER ==
[2018-12-19 19:12] LABS: BILIRUBIN,URINE NEGATIVE (NEGATIVE); GLUCOSE, URINE (UA) NEGATIVE (NEGATIVE); KETONES,URINE (UA) NEGATIVE (NEGATIVE); LEUKOCYTE ESTERASE, URINE NEGATIVE (NEGATIVE); NITRITE,URINE NEGATIVE (NEGATIVE); OCCULT BLOOD,URINE TRACE-INTA (NEGATIVE); PROTEIN,URINE NEGATIVE (NEGATIVE); UROBILINOGEN,URINE 0.2 (NORMAL) E.U./dL (NORMAL)
[2018-12-19 19:21] LABS: CLARITY,URINE CLEAR (CLEAR)
== END 2018-12-19 23:59 | disposition home or self-care (01) ==
LOC: LAB.R 08:00
PROVIDERS: ATTEND Obstetrics & Gynecology
DX: R35.0 Frequency of micturition (principal)
CPT/HCPCS: 81001; 81003; 87086

== ENCOUNTER 2019-03-05 08:00 | Outpatient (CLI) | payer MEDICARE, OTHER ==
[2019-03-05 12:55] LABS: BASOPHILS % (AUTO) 0.7 %; EOSINOPHILS # (AUTO) 0.2 10^3/uL (0.0-0.7); EOSINOPHILS % (AUTO) 3.5 %; HGB - HEMOGLOBIN 14.6 g/dL (12.0-16.0); LYMPHOCYTES # (AUTO) 1.9 10^3/uL (1.5-3.5); MEAN CORPUSCULAR HEMOGLOBIN 30.1 pg (27.0-31.0); MEAN CORPUSCULAR HGB CONC 32.7 g/dL (32.0-36.0); MEAN PLATELET VOLUME 9.5 fL (7.9-10.8); MONOCYTES # (AUTO) 0.4 10^3/uL (0.0-1.0); MONOCYTES % (AUTO) 7.6 %; NEUTROPHILS # (AUTO) 2.6 10^3/uL (1.5-6.6); NEUTROPHILS % (AUTO) 51.2 %; PLT - PLATELET COUNT 219 10^3/uL (130-450); RED BLOOD COUNT 4.87 10^6/uL (4.20-5.40); RED CELL DISTRIBUTION WIDTH 12.8 % (12.0-15.0); WHITE BLOOD COUNT 5.1 x10^3/uL (4.8-10.8)
[2019-03-05 13:18] LABS: ALBUMIN/GLOBULIN RATIO 1.4 (1.0-2.2); ALKALINE PHOSPHATASE 34 IU/L (42-121); ALT ALANINE AMINOTRANSFERASE 18 IU/L (10-60); AST ASPARTATE AMINOTRANSFERASE 21 IU/L (10-42); BILIRUBIN,TOTAL 0.6 mg/dL (0.2-1.0); BUN - BLOOD UREA NITROGEN 17 mg/dL (6-20); CALCIUM 8.7 mg/dL (8.5-10.3); CARBON DIOXIDE - CO2 27 mmol/L (21-32); CHLORIDE 103 mmol/L (101-111); CHOL/HDL RATIO 2.8 (<4.4); CHOLESTEROL 146 mg/dL; CREATININE 0.8 mg/dL (0.4-1.0); GFR - MDRD 71 (>89); GLUCOSE 98 mg/dL (70-100); HDL CHOLESTEROL 52 mg/dL; LDL CHOLESTEROL,CALCULATED 75 mg/dL; LDL/HDL RATIO 1.4 (<4.4); MAGNESIUM 2.2 mg/dL (1.7-2.8); SODIUM 136 mmol/L (135-145); TOTAL PROTEIN 6.9 g/dL (6.7-8.2); VLDL CHOLESTEROL 19 mg/dL
== END 2019-03-05 23:59 | disposition home or self-care (01) ==
LOC: LAB.N 08:00
PROVIDERS: ATTEND Nurse Practitioner Gerontology
DX: Z13.9 Encounter for screening, unspecified (principal); E03.9 Hypothyroidism, unspecified; Z79.899 Other long term (current) drug therapy
CPT/HCPCS: 36415; 80053; 80061; 83721; 83735; 84443; 85025

== ENCOUNTER 2019-03-05 12:37 | Outpatient (CLI) | payer MEDICARE, OTHER ==
--- NOTE | 2019-03-05 14:44 | Mammography Report ---
Reason: R BREAST CA Procedure Date: 03/05/2019 Accession Number: [id number] / [id number] Procedure: JOSE - Diagnostic Dig RT CPT Code: FULL RESULT: EXAM: Diagnostic Dig RT DATE: 03/05/2019 2:16 PM CLINICAL HISTORY: Diagnostic examination. History of right breast cancer status post lumpectomy and radiation. TECHNIQUE: (R) - Right CC and MLO views were obtained. Right ML as well as right medially exaggerated CC, right spot CC and right spot ML views are obtained. COMPARISON: 09/08/2018 through 03/21/2009. PARENCHYMAL PATTERN: (VD) - The breast(s) demonstrate(s) extremely dense parenchyma, limiting the sensitivity of mammography. FINDINGS: Postsurgical and posttreatment changes in the right breast are again seen, probably benign. There are no suspicious masses, calcifications, or areas of distortion. IMPRESSION: Probably Benign. BI-RADS category 3. RECOMMENDATION: (6MOS) - Recommend 6 month follow-up exam. At the time of annual left breast screening. BI-RADS CATEGORY: (3) - Probably Benign. STANDARD QUALIFYING STATEMENTS: 1. This examination was not reviewed with the aid of Computer-Aided Detection (CAD). 2. A negative or benign imaging report should not preclude biopsy if clinically suspicious findings are present. 3. Dense breasts may obscure an underlying neoplasm. 4. This examination was reviewed with the aid of 3D breast imaging (tomosynthesis).
== END 2019-03-05 12:38 | disposition home or self-care (01) ==
LOC: DI 12:37
PROVIDERS: ATTEND Internal Medicine
DX: C50.911 Malignant neoplasm of unspecified site of right female breast (principal); Z13.9 Encounter for screening, unspecified; E03.9 Hypothyroidism, unspecified; Z79.899 Other long term (current) drug therapy
CPT/HCPCS: 36415; 80053; 80061; 83721; 83735; 84443; 85025

== ENCOUNTER 2019-09-12 12:28 | Outpatient (CLI) | payer MEDICARE, OTHER ==
--- NOTE | 2019-09-12 13:29 | Mammography Report ---
Reason: R BREAST CANCER Procedure Date: 09/12/2019 Accession Number: [id number] / [id number] Procedure: JOSE - Diagnostic Dig Bilat CPT Code: FULL RESULT: EXAM: Diagnostic Dig Bilat DATE: 09/12/2019 1:02 PM CLINICAL HISTORY: History of right breast cancer 2016 TECHNIQUE: (B) - Bilateral CC and MLO views were obtained. COMPARISON: 03/05/2019, 09/08/2018, 03/07/2018, 09/13/2017, 05/03/2017, 03/11/2017, 01/13/2017, 12/31/2016, 02/07/2014 and 09/08/2012 PARENCHYMAL PATTERN: (VD) - The breasts demonstrate extremely dense parenchyma bilaterally, limiting the sensitivity of mammography. FINDINGS: Postsurgical architectural distortion posterior right breast 12:00 position as before. There are no suspicious new masses, calcifications, or areas of distortion. IMPRESSION: Benign findings. BI-RADS category 2. RECOMMENDATION: (ANNUAL) - Recommend routine annual screening mammography. BI-RADS CATEGORY: (2) - Benign Findings. STANDARD QUALIFYING STATEMENTS: 1. This examination was not reviewed with the aid of Computer-Aided Detection (CAD). 2. A negative or benign imaging report should not preclude biopsy if clinically suspicious findings are present. 3. Dense breasts may obscure an underlying neoplasm. 4. This examination was reviewed with the aid of 3D breast imaging (tomosynthesis).
== END 2019-09-12 12:29 | disposition home or self-care (01) ==
LOC: DI 12:28
PROVIDERS: ATTEND Internal Medicine
DX: C50.811 Malignant neoplasm of overlapping sites of right female breast (principal)
CPT/HCPCS: 77066

== ENCOUNTER 2019-12-17 09:55 | Outpatient (CLI) | payer MEDICARE, OTHER ==
[2019-12-17 12:05] LABS: BASOPHILS % (AUTO) 0.6 %; EOSINOPHILS # (AUTO) 0.1 10^3/uL (0.0-0.7); EOSINOPHILS % (AUTO) 1.4 %; HGB - HEMOGLOBIN 14.5 g/dL (12.0-16.0); LYMPHOCYTES % (AUTO) 29.1 %; MEAN CORPUSCULAR HEMOGLOBIN 29.7 pg (27.0-31.0); MEAN CORPUSCULAR HGB CONC 31.3 g/dL (32.0-36.0); MEAN CORPUSCULAR VOLUME 95.1 fL (81.0-99.0); MEAN PLATELET VOLUME 11.2 fL (7.9-10.8); MONOCYTES # (AUTO) 0.5 10^3/uL (0.0-1.0); MONOCYTES % (AUTO) 7.4 %; NEUTROPHILS # (AUTO) 4.3 10^3/uL (1.5-6.6); NEUTROPHILS % (AUTO) 61.2 %; PLT - PLATELET COUNT 230 10^3/uL (130-450); RED BLOOD COUNT 4.88 10^6/uL (4.20-5.40); RED CELL DISTRIBUTION WIDTH 12.4 % (12.0-15.0)
[2019-12-17 13:07] LABS: ALBUMIN 3.9 g/dL (3.2-5.5); ALBUMIN/GLOBULIN RATIO 1.3 (1.0-2.2); BILIRUBIN,TOTAL 0.4 mg/dL (0.2-1.0); CALCIUM 8.9 mg/dL (8.5-10.3); CREATININE 0.8 mg/dL (0.4-1.0); TOTAL PROTEIN 6.8 g/dL (6.7-8.2)
== END 2019-12-17 23:59 | disposition home or self-care (01) ==
LOC: LAB.N 09:55
PROVIDERS: ATTEND Physician Assistant Medical
DX: R10.13 Epigastric pain (principal)
CPT/HCPCS: 36415; 80053; 80061; 83690; 83721; 85025

== ENCOUNTER 2020-05-09 11:30 | Outpatient (CLI) | payer MEDICARE, OTHER ==
[2020-05-09 18:05] LABS: BASOPHILS % (AUTO) 0.5 %; EOSINOPHILS # (AUTO) 0.1 10^3/uL (0.0-0.7); EOSINOPHILS % (AUTO) 1.9 %; HGB - HEMOGLOBIN 15.1 g/dL (12.0-16.0); LYMPHOCYTES # (AUTO) 2.2 10^3/uL (1.5-3.5); LYMPHOCYTES % (AUTO) 37.2 %; MEAN CORPUSCULAR HEMOGLOBIN 30.8 pg (27.0-31.0); MEAN CORPUSCULAR HGB CONC 32.4 g/dL (32.0-36.0); MEAN CORPUSCULAR VOLUME 95.1 fL (81.0-99.0); MEAN PLATELET VOLUME 11.1 fL (7.9-10.8); MONOCYTES # (AUTO) 0.5 10^3/uL (0.0-1.0); MONOCYTES % (AUTO) 7.9 %; NEUTROPHILS # (AUTO) 3.1 10^3/uL (1.5-6.6); NEUTROPHILS % (AUTO) 52.3 %; PLT - PLATELET COUNT 206 10^3/uL (130-450); RED CELL DISTRIBUTION WIDTH 13.1 % (12.0-15.0); WHITE BLOOD COUNT 5.9 x10^3/uL (4.8-10.8)
[2020-05-09 18:23] LABS: ALBUMIN 4.3 g/dL (3.2-5.5); ALBUMIN/GLOBULIN RATIO 1.5 (1.0-2.2); CALCIUM 8.8 mg/dL (8.5-10.3); CREATININE 0.7 mg/dL (0.4-1.0); TOTAL PROTEIN 7.2 g/dL (6.7-8.2)
== END 2020-05-09 23:59 | disposition home or self-care (01) ==
LOC: LAB.WCP 11:30
PROVIDERS: ATTEND Nurse Practitioner Family
DX: E03.9 Hypothyroidism, unspecified (principal)
CPT/HCPCS: 36415; 80053; 84443; 85025

== ENCOUNTER 2020-05-28 08:00 | Outpatient (CLI) | payer MEDICARE, OTHER | END 2020-05-28 23:59 | disposition home or self-care (01) | LOC: LAB.R 08:00 | PROVIDERS: ATTEND Family Medicine | DX: R30.0 Dysuria (principal); N30.90 Cystitis, unspecified without hematuria | CPT/HCPCS: 87086; 87181 ==

== ENCOUNTER 2020-07-14 08:00 | Outpatient (CLI) | payer MEDICARE, OTHER | END 2020-07-14 23:59 | disposition home or self-care (01) | LOC: LAB.R 08:00 | PROVIDERS: ATTEND Physician Assistant Medical | DX: R30.0 Dysuria (principal) | CPT/HCPCS: 87086 ==

== ENCOUNTER 2020-07-15 09:22 | Outpatient (CLI) | payer MEDICARE, OTHER ==
--- NOTE | 2020-07-16 12:37 | Mammography Report ---
BILATERAL DIGITAL DIAGNOSTIC MAMMOGRAM 3D/2D: 07/15/2020 CLINICAL: Annual Diagnostic for Right Breast Cancer. Comparison is made to exams dated: 09/12/2019 mammogram, 03/05/2019 mammogram, 09/08/2018 mammogram, 03/07/2018 mammogram, 09/13/2017 mammogram, and 05/03/2017 mammogram - [facility]. T he tissue of both breasts is heterogeneously dense. This may lower the sensitivity of mammography. The patient is status post partial mastectomy right breast with stable post-operative findings. The patient is status post excisional biopsy left breast. No significant masses, calcifications, or other findings are seen in either breast. IMPRESSION: BENIGN There is no mammographic evidence of malignancy. A 1 year screening mammogram is recommended. This exam was interpreted at Station ID: [id number]. NOTE: For mammograms, a report in lay terms will be sent to the patient. Approximately 15% of breast malignancies will not be visualized mammographically. In the management of a palpable breast mass, a negative mammogram must not discourage biopsy of a clinically suspicious lesion. Electronically Signed By: Santos Crump M.D. aty/:07/15/2020 10:10:31 ACR BI-RADS Category 2: Benign Finding(s) 3342F PARENCHYMAL PATTERN: (D) - The breast(s) demonstrate(s) heterogeneously dense fibroglandular sloan thompson. BI-RADS CATEGORY: (2) - 2 RECOMMENDATION: (ANNUAL) - Recommend routine annual screening mammography. [id number] 1 year screening LATERALITY: (B)
== END 2020-07-15 09:23 | disposition home or self-care (01) ==
LOC: DI 09:22
PROVIDERS: ATTEND Internal Medicine
DX: Z12.39 Encounter for other screening for malignant neoplasm of breast (principal); Z08 Encounter for follow-up examination after completed treatment for malignant neoplasm; Z85.3 Personal history of malignant neoplasm of breast
CPT/HCPCS: 77066

== ENCOUNTER 2020-07-15 09:24 | Outpatient (CLI) | payer MEDICARE, OTHER ==
--- NOTE | 2020-07-15 14:36 | DEXA Report ---
PROCEDURE: Dexa Spine and/or Hip INDICATIONS: OSTEOPOROSIS, POST MENOPAUSAL TECHNIQUE: Dual energy x-ray absorptiometry (DXA) was performed on a [employer] System. Regions measur ed are the AP Spine, femoral neck, and if needed forearm. COMPARISON: 06/07/2018 and 06/06/2017. FINDINGS: Lumbar Spine: Bone Mineral Density 1.163 g/cm/cm,T score -0.1, Left Hip: Bone Mineral Density 0.852 g/cm/cm,T score -1.2, Femoral Neck: Bone Mineral Density 0.766 g/cm/cm, T score -2.0, (T score greater or equal to -1.0: NORMAL) (T score from -1.1 to -2.4: OSTEOPENIA) (T score less than or equal to -2.5 to: OSTEOPOROSIS) Impression: Based on WHO criteria, the patient is osteopenic. Compared with the last exam on 8, there is no significant change in bone mineral density. Patients with diagnosis of osteoporosis or osteopenia should have regular bone mineral density assess ment. For those eligible for Medicare, routine testing is allowed once every 2 years. Testing frequ ency can be increased for patients who have rapidly progressing disease or for those who are receivin g medical therapy to restore bone mass. Reviewed by: Stephania Hanna MD on 07/15/2020 2:35 PM PDT Approved by: Stehpania Hanna MD on 07/15/2020 2:35 PM PDT Station ID: [id number]
== END 2020-07-15 09:25 | disposition home or self-care (01) ==
LOC: DI 09:24
PROVIDERS: ATTEND Internal Medicine
DX: M85.89 Other specified disorders of bone density and structure, multiple sites (principal); Z78.0 Asymptomatic menopausal state
CPT/HCPCS: 77080

== ENCOUNTER 2020-09-10 08:00 | Outpatient (CLI) | payer MEDICARE, OTHER | END 2020-09-10 23:59 | disposition home or self-care (01) | LOC: LAB.R 08:00 | PROVIDERS: ATTEND Nurse Practitioner Family | DX: R30.0 Dysuria (principal) | CPT/HCPCS: 87086 ==

== ENCOUNTER 2021-02-02 12:44 | Outpatient (CLI) | payer MEDICARE, OTHER ==
[2021-02-02 18:24] LABS: BASOPHILS % (AUTO) 0.5 %; EOSINOPHILS # (AUTO) 0.2 10^3/uL (0.0-0.7); EOSINOPHILS % (AUTO) 3.2 %; HCT - HEMATOCRIT 46.1 % (37.0-47.0); HGB - HEMOGLOBIN 14.8 g/dL (12.0-16.0); LYMPHOCYTES # (AUTO) 2.5 10^3/uL (1.5-3.5); LYMPHOCYTES % (AUTO) 41.4 %; MEAN CORPUSCULAR HEMOGLOBIN 30.6 pg (27.0-31.0); MEAN CORPUSCULAR HGB CONC 32.1 g/dL (32.0-36.0); MEAN CORPUSCULAR VOLUME 95.2 fL (81.0-99.0); MEAN PLATELET VOLUME 10.8 fL (7.9-10.8); MONOCYTES # (AUTO) 0.5 10^3/uL (0.0-1.0); MONOCYTES % (AUTO) 7.8 %; NEUTROPHILS # (AUTO) 2.8 10^3/uL (1.5-6.6); NEUTROPHILS % (AUTO) 46.9 %; PLT - PLATELET COUNT 252 10^3/uL (130-450); RED BLOOD COUNT 4.84 10^6/uL (4.20-5.40); RED CELL DISTRIBUTION WIDTH 12.9 % (12.0-15.0)
[2021-02-02 18:55] LABS: ALBUMIN 4.2 g/dL (3.2-5.5); ALBUMIN/GLOBULIN RATIO 1.5 (1.0-2.2); BILIRUBIN,TOTAL 0.4 mg/dL (0.2-1.0); CALCIUM 8.9 mg/dL (8.5-10.3); CREATININE 0.8 mg/dL (0.4-1.0); POTASSIUM 4.2 mmol/L (3.5-5.0)
== END 2021-02-02 23:59 | disposition home or self-care (01) ==
LOC: LAB.WCP 12:44
PROVIDERS: ATTEND Family Medicine
DX: R10.13 Epigastric pain (principal); R14.3 Flatulence; R15.9 Full incontinence of feces
CPT/HCPCS: 36415; 80053; 83690; 85025; 85651; 86140

== ENCOUNTER 2021-02-13 07:48 | Outpatient (CLI) | payer MEDICARE, OTHER ==
--- NOTE | 2021-02-13 09:44 | Ultrasound Report ---
PROCEDURE: Abdomen Complete INDICATIONS: Epigastric abdominal pain TECHNIQUE: Real-time scanning was performed of the abdominal and retroperitoneal organs, with image documentatio n. COMPARISON: None. FINDINGS: Liver: Liver is normal in size and homogeneous in echotexture. Gallbladder: Status post cholecystectomy. Biliary ducts: No intrahepatic or extrahepatic biliary ductal dilatation. Pancreas: Visualized portions of the pancreas are sonographically normal. Spleen: Small spleen reflective of partial splenectomy. No splenic mass or perisplenic fluid collecti on. Kidneys: There is no hydronephrosis. Nonobstructing right renal calculus measuring 3 mm. Simple cyst in the left inferior pole measuring 1.8 cm. Normal cortical thickness and echogenicity otherwise. Aorta: Visualized aorta is normal in caliber at less than 3 cm. Atherosclerotic plaque noted. Iliacs: Proximal common iliac arteries are normal in caliber at less than 2.5 cm. IVC: Intrahepatic inferior vena cava is patent. Miscellaneous: No free abdominal fluid. IMPRESSION: No acute finding. Status post cholecystectomy. Nonobstructing right renal calculus. Reviewed by: João Carrillo MD on 02/13/2021 9:43 AM PDT Approved by: João Carrillo MD on 02/13/2021 9:43 AM PDT Station ID: [id number]
== END 2021-02-13 07:49 | disposition home or self-care (01) ==
LOC: DI 07:48
PROVIDERS: ATTEND Family Medicine
DX: N20.0 Calculus of kidney (principal); Z90.81 Acquired absence of spleen; Z90.49 Acquired absence of other specified parts of digestive tract

== ENCOUNTER 2021-04-23 08:00 | Outpatient (CLI) | payer MEDICARE, OTHER ==
[2021-04-23 12:22] LABS: THYROID STIMULATING HORMONE 1.78 uIU/mL (0.34-5.60)
== END 2021-04-23 23:59 | disposition home or self-care (01) ==
LOC: LAB.N 08:00
PROVIDERS: ATTEND Physician Assistant Medical
DX: E03.9 Hypothyroidism, unspecified (principal); Z79.899 Other long term (current) drug therapy
CPT/HCPCS: 36415; 84443

== ENCOUNTER 2021-04-30 11:08 | Outpatient (CLI) | payer MEDICARE, OTHER ==
--- NOTE | 2021-05-04 09:43 | Mammography Report ---
BILATERAL DIGITAL DIAGNOSTIC MAMMOGRAM 3D/2D: 04/30/2021 CLINICAL: Short term follow up of the right breast, due for bilateral imaging. Comparison is made to exams dated: 07/15/2020 mammogram, 09/12/2019 mammogram, 03/05/2019 mammogram, 1 mammogram, 03/07/2018 mammogram, and 09/13/2017 mammogram - [facility]. T he tissue of both breasts is heterogeneously dense. This may lower the sensitivity of mammography. No significant masses, calcifications, or other findings are seen in either breast. There has been no significant interval change. IMPRESSION: NEGATIVE There is no mammographic evidence of malignancy. A 1 year screening mammogram is recommended. This exam was interpreted at Station ID: [id number]. NOTE: For mammograms, a report in lay terms will be sent to the patient. Approximately 15% of breast malignancies will not be visualized mammographically. In the management of a palpable breast mass, a negative mammogram must not discourage biopsy of a clinically suspicious lesion. Electronically Signed By: João Carrillo M.D. jr/:05/01/2021 13:15:10 ACR BI-RADS Category 1: Negative 3341F PARENCHYMAL PATTERN: (D) - The breast(s) demonstrate(s) heterogeneously dense fibroglandular sloan thompson. BI-RADS CATEGORY: (1) - 1 RECOMMENDATION: (ANNUAL) - Recommend routine annual screening mammography. [id number] 1 year screening LATERALITY: (B)
== END 2021-04-30 11:09 | disposition home or self-care (01) ==
LOC: DI 11:08
PROVIDERS: ATTEND Internal Medicine
DX: C50.211 Malignant neoplasm of upper-inner quadrant of right female breast (principal)

== ENCOUNTER 2021-05-12 08:30 | Outpatient (CLI) | payer MEDICARE, OTHER ==
[2021-05-12 11:37] LABS: BASOPHILS % (AUTO) 0.4 %; EOSINOPHILS # (AUTO) 0.2 10^3/uL (0.0-0.7); EOSINOPHILS % (AUTO) 2.4 %; HCT - HEMATOCRIT 45.8 % (37.0-47.0); HGB - HEMOGLOBIN 14.7 g/dL (12.0-16.0); LYMPHOCYTES % (AUTO) 38.7 %; MEAN CORPUSCULAR HEMOGLOBIN 30.5 pg (27.0-31.0); MEAN CORPUSCULAR HGB CONC 32.1 g/dL (32.0-36.0); MEAN PLATELET VOLUME 11.5 fL (7.9-10.8); MONOCYTES # (AUTO) 0.5 10^3/uL (0.0-1.0); MONOCYTES % (AUTO) 6.3 %; NEUTROPHILS # (AUTO) 4.1 10^3/uL (1.5-6.6); NEUTROPHILS % (AUTO) 51.9 %; PLT - PLATELET COUNT 234 10^3/uL (130-450); RED BLOOD COUNT 4.82 10^6/uL (4.20-5.40); WHITE BLOOD COUNT 7.8 x10^3/uL (4.8-10.8)
[2021-05-12 11:57] LABS: ALBUMIN 4.3 g/dL (3.2-5.5); ALBUMIN/GLOBULIN RATIO 1.4 (1.0-2.2); ALKALINE PHOSPHATASE 36 IU/L (42-121); ALT ALANINE AMINOTRANSFERASE 24 IU/L (10-60); AST ASPARTATE AMINOTRANSFERASE 27 IU/L (10-42); BUN - BLOOD UREA NITROGEN 18 mg/dL (6-20); CALCIUM 9.1 mg/dL (8.5-10.3); CARBON DIOXIDE - CO2 27 mmol/L (21-32); CHLORIDE 102 mmol/L (101-111); CHOL/HDL RATIO 2.4 (<4.4); CHOLESTEROL 158 mg/dL; CREATININE 0.9 mg/dL (0.4-1.0); GFR - MDRD 61 (>89); GLUCOSE 100 mg/dL (70-100); HDL CHOLESTEROL 66 mg/dL; LDL CHOLESTEROL,CALCULATED 73 mg/dL; LDL/HDL RATIO 1.1 (<4.4); POTASSIUM 4.2 mmol/L (3.5-5.0); SODIUM 138 mmol/L (135-145); TOTAL PROTEIN 7.3 g/dL (6.7-8.2); TRIGLYCERIDES 93 mg/dL; VLDL CHOLESTEROL 19 mg/dL
== END 2021-05-12 08:31 | disposition home or self-care (01) ==
LOC: LAB.N 08:30
PROVIDERS: ATTEND Physician Assistant Medical
DX: E03.9 Hypothyroidism, unspecified (principal); Z79.899 Other long term (current) drug therapy; Z13.9 Encounter for screening, unspecified
CPT/HCPCS: 36415; 80053; 80061; 83721; 85025

== ENCOUNTER 2021-07-08 07:00 | Outpatient (CLI) | payer MEDICARE, OTHER ==
[2021-07-08 14:11] LABS: BILIRUBIN,URINE NEGATIVE (NEGATIVE); GLUCOSE, URINE (UA) NEGATIVE (NEGATIVE); KETONES,URINE (UA) NEGATIVE (NEGATIVE); LEUKOCYTE ESTERASE, URINE NEGATIVE (NEGATIVE); NITRITE,URINE NEGATIVE (NEGATIVE); OCCULT BLOOD,URINE NEGATIVE (NEGATIVE); PROTEIN,URINE NEGATIVE (NEGATIVE); UROBILINOGEN,URINE 0.2 (NORMAL) E.U./dL (NORMAL)
[2021-07-08 14:17] LABS: BACTERIA,URINE Rare /HPF (None Seen); CLARITY,URINE CLEAR (CLEAR); RBC,URINE 0-5 /HPF (0-5); SQUAMOUS EPITHELIAL CELL,UR MOD Squamous (<= Few); WBC,URINE 0-3 /HPF (0-5)
== END 2021-07-08 23:59 | disposition home or self-care (01) ==
LOC: LAB 07:00
PROVIDERS: ATTEND Physician Assistant Medical
DX: R35.0 Frequency of micturition (principal)
CPT/HCPCS: 81001; 87086

== ENCOUNTER 2021-07-16 08:00 | Outpatient (CLI) | payer MEDICARE, OTHER | END 2021-07-16 23:59 | disposition home or self-care (01) | LOC: LAB.N 08:00 | PROVIDERS: ATTEND Physician Assistant Medical | DX: N30.00 Acute cystitis without hematuria (principal) | CPT/HCPCS: 87086; 87181 ==

== ENCOUNTER 2022-01-04 08:20 | Outpatient (CLI) | payer MEDICARE, OTHER ==
[2022-01-04 11:33] LABS: BASOPHILS % (AUTO) 0.5 %; EOSINOPHILS # (AUTO) 0.2 10^3/uL (0.0-0.7); EOSINOPHILS % (AUTO) 2.9 %; HCT - HEMATOCRIT 46.1 % (37.0-47.0); HGB - HEMOGLOBIN 15.2 g/dL (12.0-16.0); LYMPHOCYTES # (AUTO) 3.1 10^3/uL (1.5-3.5); LYMPHOCYTES % (AUTO) 37.1 %; MEAN CORPUSCULAR HEMOGLOBIN 30.6 pg (27.0-31.0); MEAN CORPUSCULAR VOLUME 92.8 fL (81.0-99.0); MEAN PLATELET VOLUME 11.2 fL (7.9-10.8); MONOCYTES # (AUTO) 0.6 10^3/uL (0.0-1.0); MONOCYTES % (AUTO) 6.7 %; NEUTROPHILS # (AUTO) 4.4 10^3/uL (1.5-6.6); NEUTROPHILS % (AUTO) 52.6 %; PLT - PLATELET COUNT 252 10^3/uL (130-450); RED BLOOD COUNT 4.97 10^6/uL (4.20-5.40); RED CELL DISTRIBUTION WIDTH 12.5 % (12.0-15.0); WHITE BLOOD COUNT 8.4 x10^3/uL (4.8-10.8)
[2022-01-04 12:03] LABS: ALBUMIN/GLOBULIN RATIO 1.2 (1.0-2.2); ALKALINE PHOSPHATASE 75 IU/L (42-121); ALT ALANINE AMINOTRANSFERASE 26 IU/L (10-60); AST ASPARTATE AMINOTRANSFERASE 21 IU/L (10-42); BILIRUBIN,TOTAL 0.8 mg/dL (0.2-1.0); BUN - BLOOD UREA NITROGEN 20 mg/dL (6-20); CALCIUM 9.4 mg/dL (8.5-10.3); CARBON DIOXIDE - CO2 28 mmol/L (21-32); CHLORIDE 100 mmol/L (101-111); CHOL/HDL RATIO 2.9 (<4.4); CHOLESTEROL 171 mg/dL; CREATININE 0.8 mg/dL (0.4-1.0); GFR - MDRD 70 (>89); GLUCOSE 91 mg/dL (70-100); HDL CHOLESTEROL 60 mg/dL; LDL CHOLESTEROL,CALCULATED 94 mg/dL; LDL/HDL RATIO 1.6 (<4.4); POTASSIUM 4.2 mmol/L (3.5-5.0); SODIUM 137 mmol/L (135-145); TOTAL PROTEIN 7.3 g/dL (6.7-8.2); TRIGLYCERIDES 86 mg/dL; VLDL CHOLESTEROL 17 mg/dL
[2022-01-04 12:06] LABS: THYROID STIMULATING HORMONE 1.62 uIU/mL (0.34-5.60)
== END 2022-01-04 08:21 | disposition home or self-care (01) ==
LOC: LAB.N 08:20
PROVIDERS: ATTEND Physician Assistant Medical
DX: E03.9 Hypothyroidism, unspecified (principal); Z13.220 Encounter for screening for lipoid disorders
CPT/HCPCS: 36415; 80053; 80061; 83721; 84443; 85025

== ENCOUNTER 2022-07-21 13:14 | Outpatient (CLI) | payer MEDICARE, OTHER ==
--- NOTE | 2022-07-21 16:48 | MRI Report ---
PROCEDURE: Knee RT W/O INDICATIONS: KNEE PAIN TECHNIQUE: Noncontrast sagittal PD fast spin echo and T2 fast spin echo with fat saturation, sagittal 3-D gradie nt sequence with fat saturation; coronal T1 spin echo and PD fast spin echo with fat saturation, and axial PD fast spin echo with fat saturation through the knee. COMPARISON: 06/08/2022 FINDINGS: Image quality: Excellent. Menisci: There is linear high T2 signal intensity obliquely traversing the medial meniscal body and p osterior horn, involving the inner and middle thirds, demonstrating inferior articular surface extens ion, indicating oblique tearing. Truncation of the free edge of the lateral meniscal body is present indicating radial tearing. Superimposed linear oblique high T2 signal intensity traverses the inner, middle, peripheral thirds of the lateral meniscal body, demonstrating inferior articular surface exte nsion, indicating oblique tearing. Cruciate ligaments: The anterior and posterior cruciate ligaments appear intact. Medial structures: The medial collateral ligament appears intact. Visualized portions of the pes ans erinus tendons appear normal. No abnormal bursal fluid. Lateral structures: The lateral collateral ligament demonstrates mild T2 signal elevation at the fem oral origin. The long and short heads of the biceps femoris tendon appear intact. The popliteus tend on appears normal. Iliotibial band appears normal. Anterior structures: The quadriceps and patellar tendons appear intact. Patellar alignment is fouzia l. No femoral trochlear dysplasia or ventral trochlear prominence. No edema in the infrapatellar fa t pad. Bones and cartilage: No bone marrow contusions or fractures. Mild subchondral degenerative marrow ed ivelisse within the patellar apex. Mild tricomponent mild articular osteophyte formation. Moderate articul ar cartilage loss diffusely overlies the weightbearing aspects of the medial femoral condyle and medi al tibial plateau. Severe articular cartilage loss overlies the patellar apex and medial patellar fac et. Moderate to severe articular cartilage loss overlies the lateral patellar facet. Joint space: There is a small knee joint effusion and a trace James's cyst. Normal appearing synovi al plicae are incidentally noted. IMPRESSION: 1. Tricompartmental osteoarthritis with associated articular cartilage loss. 2. Medial and lateral meniscal tearing. 3. Low-grade partial-thickness lateral collateral ligament tear. 4. Small knee joint effusion and trace James's cyst. Reviewed by: Shaggy Schuler MD on 07/21/2022 4:47 PM PDT Approved by: Shaggy Schuler MD on 07/21/2022 4:47 PM PDT Station ID: [id number]
== END 2022-07-21 13:15 | disposition home or self-care (01) ==
LOC: DI 13:14
PROVIDERS: ATTEND Physician Assistant Medical
DX: M17.11 Unilateral primary osteoarthritis, right knee (principal); S83.241A Other tear of medial meniscus, current injury, right knee, initial encounter; S83.281A Other tear of lateral meniscus, current injury, right knee, initial encounter; S83.421A Sprain of lateral collateral ligament of right knee, initial encounter; M25.461 Effusion, right knee; M71.21 Synovial cyst of popliteal space [Baker], right knee

== ENCOUNTER 2022-08-17 08:13 | Outpatient (CLI) | payer MEDICARE, OTHER ==
--- NOTE | 2022-08-17 12:43 | DEXA Report ---
PROCEDURE: Dexa Spine and/or Hip INDICATIONS: POST MENOPAUSAL TECHNIQUE: Dual energy x-ray absorptiometry (DXA) was performed on a [employer] System. Regions measur ed are the AP Spine, femoral neck, and if needed forearm. COMPARISON: 07/15/2020 FINDINGS: Lumbar Spine: Bone Mineral Density 1.130 g/cm/cm,T score -0.4. There is interval 2.8% decrease in total lumbar s pine bone mineral density. Left Hip: Bone Mineral Density 0.817 g/cm/cm,T score -1.5. There is interval 4.1% decrease in total left hip b one mineral density. Left Femoral Neck: Bone Mineral Density 0.738 g/cm/cm, T score -2.2. (T score greater or equal to -1.0: NORMAL) (T score from -1.1 to -2.4: OSTEOPENIA) (T score less than or equal to -2.5 to: OSTEOPOROSIS) Impression: Osteopenia. Patients with diagnosis of osteoporosis or osteopenia should have regular bone mineral density assess ment. For those eligible for Medicare, routine testing is allowed once every 2 years. Testing frequ ency can be increased for patients who have rapidly progressing disease or for those who are receivin g medical therapy to restore bone mass. Reviewed by: Brendan Kang MD on 08/17/2022 12:42 PM PDT Approved by: Brendan Kang MD on 08/17/2022 12:42 PM PDT Station ID: [id number]
== END 2022-08-17 08:14 | disposition home or self-care (01) ==
LOC: DI 08:13
PROVIDERS: ATTEND Internal Medicine
DX: Z78.0 Asymptomatic menopausal state (principal); M85.80 Other specified disorders of bone density and structure, unspecified site

== ENCOUNTER 2022-11-03 08:00 | Outpatient (CLI) | payer MEDICARE, OTHER | END 2022-11-03 23:59 | disposition home or self-care (01) | LOC: LAB.N 08:00 | PROVIDERS: ATTEND Family Medicine | DX: R35.0 Frequency of micturition (principal) | CPT/HCPCS: 87077; 87086; 87181 ==

== ENCOUNTER 2023-03-07 06:29 | Day surgery (SDC) | payer MEDICARE, OTHER ==
[2023-03-07] MEDS ORDERED: LACTATED RINGERS 1,000 ML IV ONE (06:31)
[2023-03-07] MEDS ORDERED: PROPOFOL 500 MG/50 ML 500 MG/50 ML VIAL ONE (07:19)
--- NOTE | 2023-03-07 07:20 | ANESTHESIA ---
Pre-Anesthesia VS, & Labs - Diagnosis history of anemia and change in bowel habits - Procedure EGD and colonoscopy Vital Signs: Temp Pulse Resp BP Pulse Ox O2 Flow Rate 36 C L 74 16 138/86 H 98 03/07/23 06:35 03/07/23 06:35 03/07/23 06:35 03/07/23 06:35 03/07/23 06:35 Height: 5 ft 6 in Weight (kg): 61 kg Body Mass Index: 21.7 BMI Classification: Normal - NPO >8 hours - Is Patient ?: No Home Medications and Allergies Home Medications: Ambulatory Orders Calcium Carbonate/Vitamin D3 [Calcium 600 mg-D3 20 Mcg Cplt] 1 each PO DAILY 03/04/23 Diclofenac Sodium 1% Gel [Voltaren Gel] 1 tube TOP DAILY 03/04/23 Glucos Sul 2Kcl/MSM/Chond/C/Mn [Glucosamine Chondroitin Cap] 1 each PO DAILY 03/04/23 Levothyroxine [Synthroid] 75 mcg PO QDAC 02/11/17 Galcanezumab-Gnlm [Emgality Pen] 1 applic SQ UD 03/21/19 Melatonin 1 tab PO DAILY 03/21/19 Ascorbic Acid [Vitamin C] 1,000 mg PO DAILY 01/21/23 Clobetasol 0.05% Oint [Temovate 0.05% Oint] 1 applic TOP UD 01/21/23 D-Mannose [Azo D-Mannose] 500 mg PO DAILY 01/21/23 Multivitamin 1 each PO DAILY 01/21/23 Zinc Gluconate [Zinc] 50 mg PO DAILY 01/21/23 metroNIDAZOLE 0.75% GEL [Flagyl Gel] 0.75 applic TOP UD 01/21/23 Calcium Carbonate/Vitamin D3 [Calcium 600 mg-D3 20 Mcg Cplt] 1 each PO DAILY 03/04/23 Diclofenac Sodium 1% Gel [Voltaren Gel] 1 tube TOP DAILY 03/04/23 Glucos Sul 2Kcl/MSM/Chond/C/Mn [Glucosamine Chondroitin Cap] 1 each PO DAILY 03/04/23 Allergies/Adverse Reactions: Allergies Allergy/AdvReac Type Severity Reaction Status Date / Time No Known Drug Allergies Allergy Verified 10/06/22 15:16 Anes History & Medical History - Anesthetic History Anesthesia Complications: reports: Post-Operative Nausea/Vomiting - Medical History Cardiovascular: reports: None Pulmonary: reports: None Gastrointestinal: reports: Colon polyps, Cholelithiasis Urinary: reports: Incontinence Neuro: reports: None Musculoskeletal: reports: Osteoarthritis, Osteopenia, Chronic back pain Endocrine/Autoimmune: reports: HyPOthyroidism Blood Disorders: reports: None Skin: reports: None Smoking Status: Never smoker Psychosocial: reports: No issues indicated History of Cancer?: Yes (breast) - Surgical History General: reports: Cholecystectomy, Splenectomy, Other Eyes Ears Nose Throat (EENT): reports: Tonsil/Adenoidectomy Gynecologic: reports: Hysterectomy, Other Orthopedic: reports: Arthroscopic surgery Exam General: Alert, Oriented x3, Cooperative, No acute distress Dental: WNL Mouth Openin Fingerbreadth Neck Mobility: Normal Mallampati classification: I Thyromental Distance: 4-6 cm Mental/Cognitive Status: Alert/Oriented X3, Normal for patient Plan Anesthesia Type: General, Total IV Consent for Procedure(s) Verified and Reviewed: Yes Code Status: Attempt Resuscitation ASA classification: 2-Mild systemic disease Is this case an emergency?: No
[2023-03-07] MEDS ORDERED: LIDOCAINE-MPF 2% 5 ML VIAL ONE (07:38)
[2023-03-07] MEDS ORDERED: GLYCOPYRROLATE 1 MG/5 ML VIAL ONE (08:13)
[2023-03-07] MEDS ORDERED: LACTATED RINGERS 100 ML IV ONE (08:25)
--- NOTE | 2023-03-07 09:16 | ANESTHESIA POST OP EVALUATION ---
Anesthesia Post Eval - Post Anesthesia Eval Vitals: Last Vital Signs Temp 36 C L 03/07/23 08:57 Pulse 82 03/07/23 08:57 Resp 14 03/07/23 08:57 BP 157/94 H 03/07/23 08:57 Pulse Ox 99 03/07/23 08:57 O2 Flow Rate CV Function Including HR & BP: Stable Pain Control: Satisfactory Nausea & Vomiting: Negative Mental Status: Baseline Respiratory Status: Airway Patent Hydration Status: Satisfactory Anesthesia Complications: None
[2023-03-07 10:21] VITALS: BP 145/77
== END 2023-03-07 06:30 | disposition home or self-care (01) ==
LOC: SDS 06:29
PROVIDERS: ATTEND Surgery
PROC: 0DBK8ZZ Excision of Ascending Colon, Via Natural or Artificial Opening Endoscopic (ICD-10-PCS; 2023-03-07)
PROC: 0DB58ZX Excision of Esophagus, Via Natural or Artificial Opening Endoscopic, Diagnostic (ICD-10-PCS; principal; 2023-03-07 07:30)
PROC: 0DB68ZX Excision of Stomach, Via Natural or Artificial Opening Endoscopic, Diagnostic (ICD-10-PCS; 2023-03-07 07:30)
DX: D50.9 Iron deficiency anemia, unspecified (principal); R19.4 Change in bowel habit; R10.2 Pelvic and perineal pain; K31.7 Polyp of stomach and duodenum; K29.50 Unspecified chronic gastritis without bleeding; K63.5 Polyp of colon; K57.30 Diverticulosis of large intestine without perforation or abscess without bleeding
CPT/HCPCS: 43239; 45385; J7120

== ENCOUNTER 2023-06-30 08:19 | Outpatient (CLI) | payer MEDICARE, OTHER ==
--- NOTE | 2023-07-01 09:19 | Mammography Report ---
BILATERAL DIGITAL SCREENING MAMMOGRAM 3D/2D: 06/30/2023 CLINICAL: Routine screening. Personal history of right breast cancer. Comparison is made to exams dated: 06/28/2022 mammogram, 04/30/2021 mammogram, 07/15/2020 mammogram, mammogram, 03/05/2019 mammogram, and 09/08/2018 mammogram - [facility]. Both breasts are heterogeneously dense, which may obscure small masses (category c / 51-75% glandular tissue). There are benign post operative findings in both breasts. No significant masses, calcifications, or other findings are seen in either breast. There has been no significant interval change. IMPRESSION: BENIGN There is no mammographic evidence of malignancy. A 1 year screening mammogram is recommended. This exam was interpreted at Station ID: [id number]. NOTE: For mammograms, a report in lay terms will be sent to the patient. Approximately 15% of breast malignancies will not be visualized mammographically. In the management of a palpable breast mass, a negative mammogram must not discourage biopsy of a clinically suspicious lesion. Electronically Signed By: Constantino frost/turner:06/30/2023 12:59:08 letter sent: No_Letter ACR BI-RADS Category 2: Benign Finding(s) 3342F PARENCHYMAL PATTERN: (D) - The breast(s) demonstrate(s) heterogeneously dense fibroglandular parenchy ma. BI-RADS CATEGORY: (2) - 2 Mammogram [id number] 1 year screening LATERALITY: (B)
== END 2023-06-30 08:20 | disposition home or self-care (01) ==
LOC: DI.N 08:19
PROVIDERS: ATTEND Obstetrics & Gynecology
DX: Z12.31 Encounter for screening mammogram for malignant neoplasm of breast (principal); Z85.3 Personal history of malignant neoplasm of breast

== ENCOUNTER 2023-06-30 10:00 | Outpatient (CLI) | payer MEDICARE, OTHER | END 2023-06-30 10:15 | disposition home or self-care (01) | LOC: LAB.N 10:00 | PROVIDERS: ATTEND Nurse Practitioner | DX: R30.0 Dysuria (principal) | CPT/HCPCS: 87086; 87181 ==

== ENCOUNTER 2023-07-06 15:26 | Outpatient (CLI) | payer MEDICARE, OTHER ==
[2023-07-06 16:08] LABS: THYROID STIMULATING HORMONE 2.25 uIU/mL (0.34-5.60)
== END 2023-07-06 15:27 | disposition home or self-care (01) ==
LOC: LAB 15:26
PROVIDERS: ATTEND Physician Assistant Medical
DX: N20.0 Calculus of kidney (principal); E03.9 Hypothyroidism, unspecified; D64.9 Anemia, unspecified
CPT/HCPCS: 36415; 84443

== ENCOUNTER 2023-10-27 08:00 | Outpatient (CLI) | payer MEDICARE, OTHER | END 2023-10-27 23:59 | disposition home or self-care (01) | LOC: LAB.N 08:00 | PROVIDERS: ATTEND Physician Assistant Medical | DX: R10.9 Unspecified abdominal pain (principal) | CPT/HCPCS: 87086; 87181 ==

== ENCOUNTER 2023-12-07 09:45 | Outpatient (CLI) | payer MEDICARE, OTHER ==
[2023-12-07 20:05] LABS: BACTERIAL VAGINOSIS DNA NEGATIVE (NEGATIVE); CANDIDA GLABRATA DNA NEGATIVE (NEGATIVE); CANDIDA GROUP DNA NEGATIVE (NEGATIVE); CANDIDA KRUSEI DNA NEGATIVE (NEGATIVE); TRICHOMONAS VAGINALIS DNA NEGATIVE (NEGATIVE)
== END 2023-12-07 10:00 | disposition home or self-care (01) ==
LOC: LAB.N 09:45
PROVIDERS: ATTEND Family Medicine
DX: R30.0 Dysuria (principal)
CPT/HCPCS: 81514; 87086; 87181

== ENCOUNTER 2023-12-10 08:00 | Outpatient (CLI) | payer MEDICARE, OTHER | END 2023-12-10 23:59 | disposition home or self-care (01) | LOC: LAB 08:00 | PROVIDERS: ATTEND Physician Assistant Medical | DX: R10.9 Unspecified abdominal pain (principal) | CPT/HCPCS: 87086 ==

== ENCOUNTER 2023-12-18 08:43 | Outpatient (CLI) | payer MEDICARE, OTHER ==
--- NOTE | 2023-12-18 12:39 | Ultrasound Report ---
PROCEDURE: Pelvic w/Transvaginal INDICATIONS: DISORDER OF BLADDER TECHNIQUE: Real-time transabdominal scanning was performed of the pelvic floor, with image documentation. Trans vaginal scanning was not performed. COMPARISON: None. FINDINGS: Scanning of the pelvic floor is performed with and without Valsalva. Status post hysterectomy. Bladde r is moderately distended on prevoid images without significant postvoid residual bladder volume. Pat ient had difficulty with Valsalva maneuver. No definite bladder prolapse is seen. IMPRESSION: Evaluation is compromised by patient difficulty with Valsalva maneuver. No bladder prolapse was seen during the exam. Reviewed by: Edi Parra MD on 12/18/2023 12:37 PM PST Approved by: Edi Parra MD on 12/18/2023 12:37 PM PST Station ID: [id number]
== END 2023-12-18 08:44 | disposition home or self-care (01) ==
LOC: DI 08:43
PROVIDERS: ATTEND Physician Assistant
DX: N32.89 Other specified disorders of bladder (principal)

== ENCOUNTER 2024-06-22 08:57 | Outpatient (CLI) | payer MEDICARE, OTHER ==
[2024-06-22 09:13] LABS: BASOPHILS # (AUTO) 0.1 10^3/uL (0.0-0.1); BASOPHILS % (AUTO) 0.8 %; EOSINOPHILS # (AUTO) 0.2 10^3/uL (0.0-0.7); EOSINOPHILS % (AUTO) 3.5 %; HCT - HEMATOCRIT 46.3 % (37.0-47.0); HGB - HEMOGLOBIN 14.9 g/dL (12.0-16.0); LYMPHOCYTES # (AUTO) 2.4 10^3/uL (1.5-3.5); LYMPHOCYTES % (AUTO) 38.1 %; MEAN CORPUSCULAR HEMOGLOBIN 29.7 pg (27.0-31.0); MEAN CORPUSCULAR HGB CONC 32.2 g/dL (32.0-36.0); MEAN CORPUSCULAR VOLUME 92.4 fL (81.0-99.0); MEAN PLATELET VOLUME 9.8 fL (7.9-10.8); MONOCYTES # (AUTO) 0.5 10^3/uL (0.0-1.0); MONOCYTES % (AUTO) 7.3 %; NEUTROPHILS # (AUTO) 3.1 10^3/uL (1.5-6.6); PLT - PLATELET COUNT 287 10^3/uL (130-450); RED BLOOD COUNT 5.01 10^6/uL (4.20-5.40); RED CELL DISTRIBUTION WIDTH 12.6 % (12.0-15.0); WHITE BLOOD COUNT 6.3 x10^3/uL (4.8-10.8)
[2024-06-22 09:41] LABS: THYROID STIMULATING HORMONE 4.15 uIU/mL (0.34-5.60)
== END 2024-06-22 08:58 | disposition home or self-care (01) ==
LOC: LAB 08:57
PROVIDERS: ATTEND Physician Assistant Medical
DX: E03.9 Hypothyroidism, unspecified (principal); D64.9 Anemia, unspecified
CPT/HCPCS: 36415; 84443; 85025

== ENCOUNTER 2024-07-13 10:26 | Outpatient (CLI) | payer MEDICARE, OTHER ==
[2024-07-13 10:52] LABS: ALBUMIN 4.1 g/dL (3.2-5.5); ALBUMIN/GLOBULIN RATIO 1.2 (1.0-2.2); BILIRUBIN,TOTAL 0.5 mg/dL (0.2-1.0); CALCIUM 9.5 mg/dL (8.5-10.3); CREATININE 0.8 mg/dL (0.6-1.3); POTASSIUM 4.1 mmol/L (3.5-4.5); TOTAL PROTEIN 7.4 g/dL (6.4-8.9)
== END 2024-07-13 10:27 | disposition home or self-care (01) ==
LOC: LAB 10:26
PROVIDERS: ATTEND Physician Assistant Medical
DX: K58.9 Irritable bowel syndrome, unspecified (principal)
CPT/HCPCS: 36415; 80053